=== PATIENT | female | born 1995 | race American Indian/Alaskan Native ===

== ENCOUNTER 2017-01-28 16:41 | Emergency (ER) | payer SELFPAY ==
[2017-01-28 17:08] VITALS: BP 157/95
[2017-01-28 18:27] LABS: Bilirubin,Urine NEG (Negative); Blood,Urine NEG (Negative); Ketones,Urine NEG (Negative); Leukocyte Esterase,Urine MOD (Negative); Mucus,Urine 1+ /HPF; Nitrite,Urine NEG (Negative)
[2017-01-28 19:10] LABS: Basophils % (Auto) 1.1 % (0.0-1.8); Eosinophils % (Auto) 1.7 % (0.0-4.3); Hematocrit 37.7 % (30.3-42.9); Hemoglobin 13.2 gm/dl (10.1-14.3); Mean Corpuscular HGB Conc 35 % (30-34); Mean Corpuscular Hemoglobin 30 pg (28-32); Mean Corpuscular Volume 87 fl (79-97); Platelet Count 178 K/mm3 (140-440); Red Blood Count 4.33 M/mm3 (3.65-5.03); Red Cell Distribution Width 13.4 % (13.2-15.2); White Blood Count 5.3 K/mm3 (4.5-11.0)
--- NOTE | 2017-01-28 19:22 | Emergency Department Report ---
<BETO RENNER - Last Filed: 01/28/17 19:33> ED Abdominal Pain HPI - General Chief Complaint: Urogenital-Female Stated Complaint: ABD PAIN Time Seen by Provider: 01/28/17 18:23 Source: patient Mode of arrival: Ambulatory Limitations: No Limitations - History of Present Illness Initial Comments: 21-year-old female past medical history right-sided ovarian cyst presents with complaint of crampy lower abdominal pain since yesterday. Denies fever chills nausea or vomiting. Denies any diarrhea. Denies any vaginal bleeding or vaginal discharge at this time. Last menstrual period 01/20/17. Patient states that this pain is consistent with her previous history of ovarian cyst pain MD Complaint: abdominal pain Onset/Timin -: days(s) Location: RLQ, suprapubic Radiation: RLQ, suprapubic Severity: moderate Severity scale (0 -10): 7 Quality: sharp Consistency: constant Improves With: nothing Worsens With: nothing - Related Data Previous Rx's Medication Instructions Recorded Last Taken Type Ferrous Sulfate [Feosol 325 MG tab] 325 mg PO BID #60 tablet 04/12/15 Unknown Rx HYDROcodone/APAP 5-325 [[place] 1 each PO Q6HR PRN #10 tablet 04/12/15 Unknown Rx 5-325 mg TAB] Sulfamethoxazole/Trimethoprim 1 each PO BID #6 tablet 01/28/17 Unknown Rx [Bactrim DS TAB] metroNIDAZOLE [Flagyl] 500 mg PO Q12HR #14 tab 01/28/17 Unknown Rx Allergies Allergy/AdvReac Type Severity Reaction Status Date / Time No Known Allergies Allergy Verified 03/02/16 17:09 ED Review of Systems ROS: Stated complaint: ABD PAIN Other details as noted in HPI Constitutional: denies: chills, fever Eyes: denies: eye pain, eye discharge, vision change ENT: denies: ear pain, throat pain Respiratory: denies: cough, shortness of breath, wheezing Cardiovascular: denies: chest pain, palpitations Endocrine: no symptoms reported Gastrointestinal: denies: abdominal pain, nausea, diarrhea Genitourinary: denies: urgency, dysuria, discharge Musculoskeletal: denies: back pain, joint swelling, arthralgia Skin: denies: rash, lesions Neurological: denies: headache, weakness, paresthesias Psychiatric: denies: anxiety, depression Hematological/Lymphatic: denies: easy bleeding, easy bruising ED Past Medical Hx - Past Medical History Hx Hypertension: No Hx Heart Attack/AMI: No Hx Congestive Heart Failure: No Hx Diabetes: No Hx Deep Vein Thrombosis: No Hx Liver Disease: No Hx Renal Disease: No Hx Sickle Cell Disease: No Hx Seizures: No Hx Asthma: No Hx COPD: No Hx HIV: No - Surgical History Hx Pacemaker: No Hx Internal Defibrillator: No Additional Surgical History: D&C - Social History Smoking Status: Never Smoker Substance Use Type: None - Medications Home Medications: Home Medications Medication Instructions Recorded Confirmed Last Taken Type Ferrous Sulfate [Feosol 325 MG tab] 325 mg PO BID #60 tablet 04/12/15 03/16/16 Unknown Rx HYDROcodone/APAP 5-325 [[place] 1 each PO Q6HR PRN #10 tablet 04/12/15 03/16/16 Unknown Rx 5-325 mg TAB] Sulfamethoxazole/Trimethoprim 1 each PO BID #6 tablet 01/28/17 Unknown Rx [Bactrim DS TAB] metroNIDAZOLE [Flagyl] 500 mg PO Q12HR #14 tab 01/28/17 Unknown Rx ED Physical Exam - General Limitations: No Limitations General appearance: alert, in no apparent distress - Head Head exam: Present: atraumatic, normocephalic - Eye Eye exam: Present: normal appearance, PERRL, EOMI - ENT ENT exam: Present: mucous membranes moist - Neck Neck exam: Present: normal inspection - Respiratory Respiratory exam: Present: normal lung sounds bilaterally. Absent: respiratory distress - Cardiovascular Cardiovascular Exam: Present: regular rate, normal rhythm. Absent: systolic murmur, diastolic murmur, rubs, gallop - GI/Abdominal GI/Abdominal exam: Present: soft, normal bowel sounds - External exam: Present: normal external exam Speculum exam: Present: normal speculum exam Bi-manual exam: Present: normal bi-manual exam, adnexal tenderness (minimal right sided adnexal tenderness) - Extremities Exam Extremities exam: Present: normal inspection - Back Exam Back exam: Present: normal inspection - Neurological Exam Neurological exam: Present: alert, oriented X3, CN II-XII intact, normal gait - Psychiatric Psychiatric exam: Present: normal affect, normal mood - Skin Skin exam: Present: warm, dry, intact, normal color. Absent: rash ED Course Vital Signs 01/28/17 17:05 Temperature 98.9 F Pulse Rate 71 Respiratory 18 Rate Blood Pressure 157/95 O2 Sat by Pulse 100 Oximetry ED Medical Decision Making - Lab Data Result diagrams: 01/28/17 18:55 01/28/17 18:55 - Medical Decision Making A/P: Suprapubic pain/lower abdominal pain adnexal pain 1-pending pelvic ultrasound 2-UA unremarkable, labs unremarkable, WBC shows no leukocytosis on CBC 3-what prep unremarkable 4- Critical care attestation.: If time is entered above; I have spent that time in minutes in the direct care of this critically ill patient, excluding procedure time. ED Disposition Clinical Impression: BV (bacterial vaginosis) UTI (urinary tract infection) Qualifiers: Urinary tract infection type: acute cystitis Hematuria presence: without hematuria Qualified Code(s): N30.00 - Acute cystitis without hematuria Disposition: TO HOME OR SELFCARE Condition: Stable Instructions: Bacterial Vaginosis (ED), Urinary Tract Infection in Women (ED) Prescriptions: metroNIDAZOLE [Flagyl] 500 mg PO Q12HR #14 tab Sulfamethoxazole/Trimethoprim [Bactrim DS TAB] 1 each PO BID #6 tablet Referrals: PRIMARY CARE, [Primary Care Provider] - 3-5 Days Forms: STI Treatment and Prevention, Work/School Release Form(ED) <GUSTAVO MURO - Last Filed: 01/28/17 21:30> ED Medical Decision Making - Lab Data Result diagrams: 01/28/17 18:55 01/28/17 18:55 Labs 01/28/17 01/28/17 01/28/17 17:36 18:55 18:55 WBC 5.3 RBC 4.33 Hgb 13.2 Hct 37.7 MCV 87 MCH 30 MCHC 35 H RDW 13.4 Plt Count 178 Lymph % (Auto) 50.0 H [place] % (Auto) 7.2 Eos % (Auto) 1.7 Baso % (Auto) 1.1 Lymph # 2.6 [place] # 0.4 Eos # 0.1 Baso # 0.1 Seg Neutrophils % 40.0 Seg Neutrophils # 2.1 Sodium 143 Potassium 4.0 Chloride 103.2 Carbon Dioxide 29 Anion Gap 15 BUN 7 Creatinine 0.6 L Estimated GFR > 60 BUN/Creatinine Ratio 12 Glucose 104 H Calcium 9.1 HCG, Quant Urine Color Yellow Urine Turbidity Clear Urine pH 6.0 Ur Specific [place] 1.023 Urine Protein 30 mg/dl Urine Glucose (UA) Neg Urine Ketones Neg Urine Blood Neg Urine Nitrite Neg Urine Bilirubin Neg Urine Urobilinogen 4.0 Ur Leukocyte Esterase Mod Urine WBC (Auto) 12.0 H Urine RBC (Auto) 2.0 U Epithel Cells (Auto) 9.0 Urine Mucus 1+ Urine HCG, Qual Negative 01/28/17 18:55 WBC RBC Hgb Hct MCV MCH MCHC RDW Plt Count Lymph % (Auto) [place] % (Auto) Eos % (Auto) Baso % (Auto) Lymph # [place] # Eos # Baso # Seg Neutrophils % Seg Neutrophils # Sodium Potassium Chloride Carbon Dioxide Anion Gap BUN Creatinine Estimated GFR BUN/Creatinine Ratio Glucose Calcium HCG, Quant < 2 Urine Color Urine Turbidity Urine pH Ur Specific [place] Urine Protein Urine Glucose (UA) Urine Ketones Urine Blood Urine Nitrite Urine Bilirubin Urine Urobilinogen Ur Leukocyte Esterase Urine WBC (Auto) Urine RBC (Auto) U Epithel Cells (Auto) Urine Mucus Urine HCG, Qual - Radiology Data Radiology results: report reviewed U/S transvaginal normal pelvic ultrasound. bilateral ovaries appear normal. color duplex evaluation of the ovaries shows flow bilaterally. - Medical Decision Making 21 year old female presents to ED with pelvic pain. patient states pain radiates to right side of abdomen. patient has no tenderness present to RLQ during palpation on exam. all 4 quadrants of patient's abdomen are non tender to palpation. patient has WBC within normal limits and is afebrile. patient is stable, neurologically intact and in no acute distress. patient has no acute findings on U/S ordered by previous provider. patient has urine positive for UTI and wet prep positive for BV. patient has negative preg test during ED visit today. ED Disposition Is pt being admited?: No Does the pt Need Aspirin: No
[2017-01-28 19:25] LABS: Anion Gap 15 mmol/L; BUN/Creatinine Ratio 12; Blood Urea Nitrogen 7 mg/dL (7-17); Calcium 9.1 mg/dL (8.4-10.2); Carbon Dioxide 29 mmol/L (22-30); Chloride 103.2 mmol/L (98-107); Glucose 104 mg/dL (65-100); Sodium 143 mmol/L (137-145)
--- NOTE | 2017-01-28 20:07 | Ultrasound Report ---
FINAL REPORT EXAM: US TRANSVAGINAL HISTORY: right sided adnexal pain ? torsion TECHNIQUE: Real-time sonography was performed of the pelvis endovaginally. Images are submitted for interpretation. PRIORS: 03/25/2015 FINDINGS: The uterus appears normal measuring 8.4 x 5.0 x 5.4 cm. The endometrial stripe appears normal measuring 6 mm. The right ovary appears normal measuring 3.2 x 2.2 x 3.2 cm. There is a normal appearing follicle in the right ovary. The left ovary appears normal measuring 4.1 x 2.0 x 3.2 cm. Color duplex evaluation of the ovaries shows flow bilaterally. There is a small amount of free pelvic fluid likely physiologic in nature. IMPRESSION: Normal pelvic ultrasound.
--- NOTE | 2017-01-28 20:08 | Ultrasound Report ---
FINAL REPORT EXAM: US PELVIS DUPLEX DOPPLER COMP HISTORY: right sided adnexal pain ? torsion TECHNIQUE: Real-time sonography was performed of the pelvis transabdominally. Images are submitted for interpretation. PRIORS: 03/25/2015 FINDINGS: The uterus appears normal measuring 8.4 x 5.0 x 5.4 cm. The endometrial stripe appears normal measuring 6 mm. The right ovary appears normal measuring 3.2 x 2.2 x 3.2 cm. There is a normal appearing follicle in the right ovary. The left ovary appears normal measuring 4.1 x 2.0 x 3.2 cm. Color duplex evaluation of the ovaries shows flow bilaterally. There is a small amount of free pelvic fluid likely physiologic in nature. IMPRESSION: Normal pelvic ultrasound.
== END 2017-01-28 21:37 | disposition home or self-care (01) ==
LOC: ED 16:41
DX: N76.0 Acute vaginitis (principal); N39.0 Urinary tract infection, site not specified
CPT/HCPCS: 36415; 76830; 80048; 81001; 81025; 84702; 85025; 87210; 93975; 99284

== ENCOUNTER 2017-07-04 16:57 | Emergency (ER) | payer SELFPAY ==
--- NOTE | 2017-07-04 19:56 | Emergency Department Report ---
ED Chest Pain HPI - General Chief Complaint: Chest Pain Stated Complaint: CP Time Seen by Provider: 07/04/17 19:29 Source: patient Mode of arrival: Ambulatory Limitations: No Limitations - History of Present Illness Initial Comments: 22yo female with no significant pmhx comes in compalining of chest and abdominal pain for 1 month. pt states that it hurts to breathe at times. Pt currently denies n/v/sob. She did report in triage that she was having nausea and vomiting and shortness of breath but denies with me and to attending physician. Patient denies any medical problems she has a history of D&C 2. She currently doesn't have a primary care physician due to lack of insurance. She reports that her pain is 7 out of 10 and achy. Abdominal pain is located to the lower abdomen. Denies any diarrhea. Reports vaginal discharge. Denies any fever, cough. Patient has similar incident of chest pain in the past. She said it was gas. Denies any vaginal bleeding or back pain. Denies any urinary burning frequency or urgency. Denies any history of blood clots or swelling to extremities. Denies taking control. Denies any family history of blood clot. She was seen in screened by attending physician Complaint: chest pain, other (abdominal pain and vaginal discharge) Onset/Timin -: month(s) Onset: during rest Pain Location: substernal Pain Radiation: abdomen Severity: severe Severity scale (0 -10): 7 Quality: aching Consistency: intermittent Improves With: nothing Worsens With: inspiration Context: other (unknown) re: denies: nausea, vomting, diaphoresis, dyspnea, sense of impending doom Other Symptoms: denies: cough, fever, syncope, rash, acid taste in mouth, leg swelling, palpitations, burping Treatments Prior to Arrival: none Aspirin use within the Past 7 Days: (0) No - Related Data On Oral Contraceptives: No (last menstrual period was in 04/2017. She told triage nurse t105/12/2015) Previous Rx's Medication Instructions Recorded Last Taken Type Ferrous Sulfate [Feosol 325 MG tab] 325 mg PO BID #60 tablet 04/12/15 Unknown Rx HYDROcodone/APAP 5-325 [[place] 1 each PO Q6HR PRN #10 tablet 04/12/15 Unknown Rx 5-325 mg TAB] Sulfamethoxazole/Trimethoprim 1 each PO BID #6 tablet 01/28/17 Unknown Rx [Bactrim DS TAB] Vit No.130/Iron/Folic 1 each PO QDAY 30 Days #30 tablet 07/04/17 Unknown Rx [ Tablet] metroNIDAZOLE [Flagyl TAB] 500 mg PO Q12HR 7 Days #14 tab 07/04/17 Unknown Rx Allergies Allergy/AdvReac Type Severity Reaction Status Date / Time No Known Allergies Allergy Verified 03/02/16 17:09 Heart Score - HEART Score History: Slightly suspicious EKG: Normal Age: < 45 Risk factors: 1-2 risk factors (positive ) Troponin: < normal limit HEART Score: 1 - Critical Actions Critical Actions: 0-3 pts:0.9-1.7%risk of adverse cardiac event.Candidate for discharge ED Review of Systems ROS: Stated complaint: CP Other details as noted in HPI Comment: All other systems reviewed and negative Constitutional: no symptoms reported ENT: denies: ear pain, throat pain, congestion Respiratory: no symptoms reported Cardiovascular: chest pain. denies: palpitations, dyspnea on exertion, orthopnea, edema, syncope, paroxysmal nocturnal dyspnea Gastrointestinal: abdominal pain. denies: nausea, vomiting, diarrhea, constipation, hematemesis, melena, hematochezia Genitourinary: discharge, abnormal menses. denies: urgency, dysuria, frequency , hematuria, dyspareunia Musculoskeletal: denies: back pain, joint swelling, arthralgia, myalgia Skin: denies: rash Neurological: denies: headache, weakness, numbness, paresthesias, abnormal gait , vertigo ED Past Medical Hx - Past Medical History Previous Medical History?: No Hx Hypertension: No Hx Heart Attack/AMI: No Hx Congestive Heart Failure: No Hx Diabetes: No Hx Deep Vein Thrombosis: No Hx Liver Disease: No Hx Renal Disease: No Hx Sickle Cell Disease: No Hx Seizures: No Hx Asthma: No Hx COPD: No Hx HIV: No - Surgical History Past Surgical History?: Yes Hx Pacemaker: No Hx Internal Defibrillator: No Additional Surgical History: D&C x 2 - Family History Family history: hypertension - Social History Smoking Status: Never Smoker Substance Use Type: None - Medications Home Medications: Home Medications Medication Instructions Recorded Confirmed Last Taken Type Ferrous Sulfate [Feosol 325 MG tab] 325 mg PO BID #60 tablet 04/12/15 03/16/16 Unknown Rx HYDROcodone/APAP 5-325 [[place] 1 each PO Q6HR PRN #10 tablet 04/12/15 03/16/16 Unknown Rx 5-325 mg TAB] Sulfamethoxazole/Trimethoprim 1 each PO BID #6 tablet 01/28/17 Unknown Rx [Bactrim DS TAB] Vit No.130/Iron/Folic 1 each PO QDAY 30 Days #30 tablet 07/04/17 Unknown Rx [ Tablet] metroNIDAZOLE [Flagyl TAB] 500 mg PO Q12HR 7 Days #14 tab 07/04/17 Unknown Rx ED Physical Exam - General Limitations: No Limitations General appearance: alert, in no apparent distress - Head Head exam: Present: atraumatic, normocephalic, normal inspection - Eye Eye exam: Present: normal appearance, PERRL, EOMI Pupils: Present: normal accommodation - ENT ENT exam: Present: normal exam, normal orophraynx, mucous membranes moist - Neck Neck exam: Present: normal inspection, full ROM. Absent: tenderness, lymphadenopathy, thyromegaly - Respiratory Respiratory exam: Present: normal lung sounds bilaterally, chest wall tenderness (positive reproduction of pain to mid chest wall). Absent: respiratory distress, wheezes, rales, rhonchi, stridor, accessory muscle use, decreased breath sounds, prolonged expiratory - Cardiovascular Cardiovascular Exam: Present: regular rate, normal rhythm, normal heart sounds. Absent: systolic murmur, diastolic murmur - GI/Abdominal GI/Abdominal exam: Present: soft, normal bowel sounds. Absent: distended, tenderness, guarding, rebound, rigid, organomegaly, mass, bruit, pulsatile mass , hernia - External exam: Present: normal external exam Speculum exam: Present: vaginal discharge, cervical discharge. Absent: normal speculum exam, erythema, vaginal bleeding, foreign body, tissue, laceration Bi-manual exam: Present: normal bi-manual exam - Expanded Exam Expanded External exam: Present: normal Amniotic fluid: Present: none Speculum exam: Present: cervical OS closed - Extremities Exam Extremities exam: Present: normal inspection, full ROM, normal capillary refill , other (no clubbing, cyanosis or edema. +2 pulses all extremities. No neurovascular compromise. Patient with +5 strength in all extremities. No laceration, contusion or erythema to extremities). Absent: tenderness, pedal edema, joint swelling, calf tenderness - Back Exam Back exam: Present: normal inspection, full ROM, other (ambulates without difficulties). Absent: tenderness, CVA tenderness (R), CVA tenderness (L), muscle spasm, paraspinal tenderness, vertebral tenderness, rash noted - Neurological Exam Neurological exam: Present: alert, oriented X3, normal gait - Psychiatric Psychiatric exam: Present: normal affect, normal mood - Skin Skin exam: Present: warm, dry, intact, normal color. Absent: rash ED Course Vital Signs 07/04/17 07/04/17 17:02 22:18 Temperature 98.7 F Pulse Rate 93 H 72 Respiratory 16 18 Rate Blood Pressure 121/74 Blood Pressure 112/77 [Left] O2 Sat by Pulse 100 100 Oximetry - Reevaluation(s) Reevaluation #1: 07/04/17 23:44 Patient stable throughout ED course. It was a tolerate oral liquids in emergency room. AMBROSE score - Ambrose Score Age > 65: (0) No Aspirin use within the Past 7 Days: (0) No 3 or more CAD Risk Factors: (0) No 2 or more Angina events in past 24 hrs: (0) No Known CAD with more than 50% Stenosis: (0) No Elevated Cardiac Markers: (0) No ST Deviation Greater than 0.5mm: (0) No AMBROSE Score: 0 ED Medical Decision Making - Lab Data Result diagrams: 07/04/17 19:52 07/04/17 19:52 Lab Results 07/04/17 07/04/17 07/04/17 Range/Units 19:52 19:52 19:52 WBC 7.0 (4.5-11.0) K/mm3 RBC 4.65 (3.65-5.03) M/mm3 Hgb 13.9 (10.1-14.3) gm/dl Hct 40.8 (30.3-42.9) % MCV 88 (79-97) fl MCH 30 (28-32) pg MCHC 34 (30-34) % RDW 13.4 (13.2-15.2) % Plt Count 252 (140-440) K/mm3 Lymph % (Auto) 44.5 H (13.4-35.0) % Bartholomew % (Auto) 7.0 (0.0-7.3) % Eos % (Auto) 2.6 (0.0-4.3) % Baso % (Auto) 0.5 (0.0-1.8) % Lymph # 3.1 (1.2-5.4) K/mm3 Bartholomew # 0.5 (0.0-0.8) K/mm3 Eos # 0.2 (0.0-0.4) K/mm3 Baso # 0.0 (0.0-0.1) K/mm3 Seg Neutrophils % 45.4 (40.0-70.0) % Seg Neutrophils # 3.2 (1.8-7.7) K/mm3 D-Dimer 171.43 (0-234) ng/mlDDU Sodium (137-145) mmol/L Potassium (3.6-5.0) mmol/L Chloride (98-107) mmol/L Carbon Dioxide (22-30) mmol/L Anion Gap mmol/L BUN (7-17) mg/dL Creatinine (0.7-1.2) mg/dL Estimated GFR ml/min BUN/Creatinine Ratio % Glucose (65-100) mg/dL Calcium (8.4-10.2) mg/dL Total Bilirubin (0.1-1.2) mg/dL AST (5-40) units/L ALT (7-56) units/L Alkaline Phosphatase (35-129) units/L Troponin T < 0.010 (0.00-0.029) ng/mL Total Protein (6.3-8.2) g/dL Albumin (3.9-5) g/dL Albumin/Globulin Ratio % Lipase 44 (13-60) units/L HCG, Qual (Negative) HCG, Quant (0-4) mIU/mL Urine Color (Yellow) Urine Turbidity (Clear) Urine pH (5.0-7.0) Ur Specific [place] (1.003-1.030) Urine Protein (Negative) mg/dL Urine Glucose (UA) (Negative) mg/dL Urine Ketones (Negative) mg/dL Urine Blood (Negative) Urine Nitrite (Negative) Urine Bilirubin (Negative) Urine Urobilinogen (<2.0) mg/dL Ur Leukocyte Esterase (Negative) Urine WBC (Auto) (0.0-6.0) /HPF Urine RBC (Auto) (0.0-6.0) /HPF U Epithel Cells (Auto) (0-13.0) /HPF Urine Mucus /HPF 07/04/17 07/04/17 07/04/17 Range/Units 19:52 19:52 19:52 WBC (4.5-11.0) K/mm3 RBC (3.65-5.03) M/mm3 Hgb (10.1-14.3) gm/dl Hct (30.3-42.9) % MCV (79-97) fl MCH (28-32) pg MCHC (30-34) % RDW (13.2-15.2) % Plt Count (140-440) K/mm3 Lymph % (Auto) (13.4-35.0) % Bartholomew % (Auto) (0.0-7.3) % Eos % (Auto) (0.0-4.3) % Baso % (Auto) (0.0-1.8) % Lymph # (1.2-5.4) K/mm3 Bartholomew # (0.0-0.8) K/mm3 Eos # (0.0-0.4) K/mm3 Baso # (0.0-0.1) K/mm3 Seg Neutrophils % (40.0-70.0) % Seg Neutrophils # (1.8-7.7) K/mm3 D-Dimer (0-234) ng/mlDDU Sodium 140 (137-145) mmol/L Potassium 4.5 (3.6-5.0) mmol/L Chloride 103.4 (98-107) mmol/L Carbon Dioxide 25 (22-30) mmol/L Anion Gap 16 mmol/L BUN 7 (7-17) mg/dL Creatinine 0.6 L (0.7-1.2) mg/dL Estimated GFR > 60 ml/min BUN/Creatinine Ratio 12 % Glucose 86 (65-100) mg/dL Calcium 9.2 (8.4-10.2) mg/dL Total Bilirubin 0.30 (0.1-1.2) mg/dL AST 20 (5-40) units/L ALT 10 (7-56) units/L Alkaline Phosphatase 55 (35-129) units/L Troponin T (0.00-0.029) ng/mL Total Protein 7.5 (6.3-8.2) g/dL Albumin 4.2 (3.9-5) g/dL Albumin/Globulin Ratio 1.3 % Lipase (13-60) units/L HCG, Qual Positive (Negative) HCG, Quant 6637 H (0-4) mIU/mL Urine Color (Yellow) Urine Turbidity (Clear) Urine pH (5.0-7.0) Ur Specific [place] (1.003-1.030) Urine Protein (Negative) mg/dL Urine Glucose (UA) (Negative) mg/dL Urine Ketones (Negative) mg/dL Urine Blood (Negative) Urine Nitrite (Negative) Urine Bilirubin (Negative) Urine Urobilinogen (<2.0) mg/dL Ur Leukocyte Esterase (Negative) Urine WBC (Auto) (0.0-6.0) /HPF Urine RBC (Auto) (0.0-6.0) /HPF U Epithel Cells (Auto) (0-13.0) /HPF Urine Mucus /HPF 07/04/17 Range/Units 20:17 WBC (4.5-11.0) K/mm3 RBC (3.65-5.03) M/mm3 Hgb (10.1-14.3) gm/dl Hct (30.3-42.9) % MCV (79-97) fl MCH (28-32) pg MCHC (30-34) % RDW (13.2-15.2) % Plt Count (140-440) K/mm3 Lymph % (Auto) (13.4-35.0) % Bartholomew % (Auto) (0.0-7.3) % Eos % (Auto) (0.0-4.3) % Baso % (Auto) (0.0-1.8) % Lymph # (1.2-5.4) K/mm3 Bartholomew # (0.0-0.8) K/mm3 Eos # (0.0-0.4) K/mm3 Baso # (0.0-0.1) K/mm3 Seg Neutrophils % (40.0-70.0) % Seg Neutrophils # (1.8-7.7) K/mm3 D-Dimer (0-234) ng/mlDDU Sodium (137-145) mmol/L Potassium (3.6-5.0) mmol/L Chloride (98-107) mmol/L Carbon Dioxide (22-30) mmol/L Anion Gap mmol/L BUN (7-17) mg/dL Creatinine (0.7-1.2) mg/dL Estimated GFR ml/min BUN/Creatinine Ratio % Glucose (65-100) mg/dL Calcium (8.4-10.2) mg/dL Total Bilirubin (0.1-1.2) mg/dL AST (5-40) units/L ALT (7-56) units/L Alkaline Phosphatase (35-129) units/L Troponin T (0.00-0.029) ng/mL Total Protein (6.3-8.2) g/dL Albumin (3.9-5) g/dL Albumin/Globulin Ratio % Lipase (13-60) units/L HCG, Qual (Negative) HCG, Quant (0-4) mIU/mL Urine Color Yellow (Yellow) Urine Turbidity Clear (Clear) Urine pH 7.0 (5.0-7.0) Ur Specific [place] 1.024 (1.003-1.030) Urine Protein <15 mg/dl (Negative) mg/dL Urine Glucose (UA) Neg (Negative) mg/dL Urine Ketones Neg (Negative) mg/dL Urine Blood Neg (Negative) Urine Nitrite Neg (Negative) Urine Bilirubin Neg (Negative) Urine Urobilinogen 4.0 (<2.0) mg/dL Ur Leukocyte Esterase Tr (Negative) Urine WBC (Auto) 2.0 (0.0-6.0) /HPF Urine RBC (Auto) 2.0 (0.0-6.0) /HPF U Epithel Cells (Auto) 3.0 (0-13.0) /HPF Urine Mucus Few /HPF Wet prep with greater than 20% himself and negative trichomoniasis and yeast. ATUL and chlamydia test distended - EKG Data -: EKG Interpreted by Me (attending physician) EKG shows normal: sinus rhythm (92 bpm) Rate: normal - EKG Data Interpretation: no acute changes, normal EKG - Radiology Data Radiology results: report reviewed Patient found to have positive tests and she hasn't had her period since April 2017. Transvaginal and pelvic ultrasound revealed patient with early IUP with gestational sac and yolk sac only. No embryonic pole or heart tones seen. Follow-up is advised. Minimal free fluid. Pelvic ultrasound also reports single intrauterine gestational sac noted approximately 5 weeks and 5 days. They recommended follow-up ultrasound in 1 week to confirm viability and suggests serial beta hCG level. - Medical Decision Making ED course: Patient complaining of chest and abdominal pain. Heart score is 1 due to positive . AMBROSE is 0. Based on perk rule patient did not need any further workup for pulmonary embolism. D-dimer normal values. Troponin negative. CBC and urinalysis is stable. Chemistries stable. Quantitative hCG positive and correlates with ultrasound. Ultrasound report shows patient with positive IUP at approximately 5 weeks and 5 days without any pole but positive yolk sac. Radiologist is recommended follow-up ultrasound for viability in one week and also serial hCG. I discussed labs and ultrasound report with patient and the need for her to follow-up with [facility] for repeat ultrasound in 1 week and also she needs to follow up with [facility] for monitoring and care. Discussed with her since she does not have any insurance that it would be better if she goes this outside Medical Center as they utilize a sliding scale fee to get her care started. I also discussed lab results and vaginal swab with her. I told her that they have primary care and [facility] at [facility]. I will refer her to our on-call [facility] which is my [facility] and also discussed outside medical center. I also discussed patient she needs to return to the hospital in 3 days to have repeat blood test to ensure that this is stable and increasing. Patient voiced understanding. She did not need any medication while in the emergency room. She is able to tolerate oral liquids without any problems. Patient and discharged home in stable condition with prescription for vitamin and Flagyl for bacterial vaginosis. Critical care attestation.: If time is entered above; I have spent that time in minutes in the direct care of this critically ill patient, excluding procedure time. ED Disposition Clinical Impression: Atypical chest pain, Threatened miscarriage, Vaginal discharge, Bacterial vaginosis Abdominal pain during Qualifiers: Trimester: first trimester Qualified Code(s): O26.891 - Other specified related conditions, first trimester; R10.9 - Unspecified abdominal pain Disposition: - TO HOME OR SELFCARE Is pt being admited?: No Does the pt Need Aspirin: No Condition: Stable Instructions: Chest Pain (ED), Bacterial Vaginosis (ED), Threatened Miscarriage (ED), Abdominal Pain in (ED) Additional Instructions: Please return to the hospital if you have increasing abdominal pain, vaginal bleeding . Please follow up at [facility] where he will be able to obtain care with [facility] and also primary care. Please call and schedule an appointment for follow-up visits. You can also called my [facility] and schedule an appointment. Radiology requested that you have a follow-up ultrasound in 1 week You will also need to return to the hospital in 3 days to have repeat blood test done. Start taking vitamin Prescriptions: metroNIDAZOLE [Flagyl TAB] 500 mg PO Q12HR 7 Days #14 tab Vit No.130/Iron/Folic [ Tablet] 1 each PO QDAY 30 Days #30 tablet Referrals: [facility] [Provider Group] - 07/07/17 [facility] [Outside] - 07/07/17 (Patient given paperwork with address and phone number and clinic hours for [facility] [Primary Care Provider] - 07/07/17 return to, emergency room [Other] - 07/07/17 (you will need repeat blood blood test in 3 days) Forms: Work/School Release Form(ED)
--- NOTE | 2017-07-04 19:56 | Emergency Department Report ---
Blank Doc - Documentation Documentation: 22yo f with no significant pmhx comes in compalining of chest and abdominal pain for 1 month. pt states that it hurts to breathe at times. Pt currently denies n/v/sob. PE: + reproducible chest pain on palpation plan: labwork, xray, CT
[2017-07-04 20:08] LABS: Basophils % (Auto) 0.5 % (0.0-1.8); Eosinophils # (Auto) 0.2 K/mm3 (0.0-0.4); Eosinophils % (Auto) 2.6 % (0.0-4.3); Hematocrit 40.8 % (30.3-42.9); Hemoglobin 13.9 gm/dl (10.1-14.3); Lymphocytes # (Auto) 3.1 K/mm3 (1.2-5.4); Lymphocytes % (Auto) 44.5 % (13.4-35.0); Mean Corpuscular HGB Conc 34 % (30-34); Mean Corpuscular Hemoglobin 30 pg (28-32); Mean Corpuscular Volume 88 fl (79-97); Monocytes # (Auto) 0.5 K/mm3 (0.0-0.8); Platelet Count 252 K/mm3 (140-440); Red Blood Count 4.65 M/mm3 (3.65-5.03); Red Cell Distribution Width 13.4 % (13.2-15.2)
[2017-07-04 20:15] LABS: Lipase 44 units/L (13-60)
[2017-07-04 20:19] LABS: Alanine Aminotransferase 10 units/L (7-56); Albumin 4.2 g/dL (3.9-5); BUN/Creatinine Ratio 12; Blood Urea Nitrogen 7 mg/dL (7-17); Calcium 9.2 mg/dL (8.4-10.2); Hemolysis Index 4
[2017-07-04 20:25] LABS: Bilirubin,Urine NEG (Negative); Blood,Urine NEG (Negative); Color,Urine Yellow (Yellow); Mucus,Urine FEW /HPF; Protein,Urine <15 mg/dL mg/dL (Negative)
[2017-07-04 22:18] VITALS: BP 112/77
--- NOTE | 2017-07-04 22:19 | Ultrasound Report ---
FINAL REPORT PROCEDURE: US OB TRANSVAGINAL TECHNIQUE: Real-time transvaginal sonography of the uterus, placenta, amniotic fluid, adnexa, and fetus was performed with image documentation. Measurements were obtained to determine age/size. M-mode Doppler was used to document heartbeat. CPT 11440 HISTORY: cp, abd pain. vag discharge, preg COMPARISON: No prior studies are available for comparison. FINDINGS: CRL: No embryo seen at this time Yolk Sac: Normal. Embryonic Cardiac Activity: No heart tones seen at this time Gestational Sac: 10 millimeters consistent with 5 week 5 day age Right Ovary: Normal. 2.5 x 2.2 centimeters Left Ovary: Normal. 4.2 x 2.5 centimeters Estimated delivery date: 03/01/2018 Comment: Minimal free fluid. IMPRESSION: Early IUP with gestational sac and yolk sac only. No embryonic pole or heart tones seen. Followup is advised. Minimal free fluid.
--- NOTE | 2017-07-04 22:25 | Ultrasound Report ---
FINAL REPORT EXAM: US OB < = 14 WEEKS FETUS HISTORY: cp, abd pain. vag discharge, preg . Vaginal spotting. LMP 04/17/2017 with estimated age 11 weeks 1 day and EDC 01/22/2018 TECHNIQUE: Ultrasound of the pelvis using transabdominal and transvaginal imaging PRIORS: Pelvic ultrasound 01/28/2017 FINDINGS: Uterus: Uterus is enlarged in size and normal and homogeneous in echogenicity without focal fibroid formation. The uterus measures 9.8 x 6.1 x 7.1 cm in size. There is a single early intrauterine gestation noted. Intrauterine gestation: There is a single intrauterine gestation identified with only a yolk sac seen. No evidence for a pole is seen. Gestational sac diameter measurement of 1.04 cm corresponds to estimated age 5 weeks 5 days with EDC 03/01/2018. Ovaries: Both ovaries appear normal in size and echogenicity with normal blood flow bilaterally. The right ovary measures 2.5 x 1.6 x 2.2 cm and the left ovary measures 4.2 x 2.5 x 2.3 cm in size. Other: There is no evidence for solid adnexal mass is seen. There is small amount of free fluid in the cul-de-sac. IMPRESSION: Single intrauterine gestational sac noted with an approximate age of 5 weeks 5 days. This sac contains only a yolk sac at this time. No pole is present. Follow-up ultrasound 1 week is suggested to confirm viability. Alternatively, correlation with serial beta HCG levels could also be obtained.
== END 2017-07-05 00:27 | disposition home or self-care (01) ==
LOC: ED 16:57
DX: O20.0 Threatened abortion (principal); O23.591 Infection of other part of genital tract in pregnancy, first trimester; B96.89 Other specified bacterial agents as the cause of diseases classified elsewhere; O26.891 Other specified pregnancy related conditions, first trimester; R07.89 Other chest pain; Z3A.01 Less than 8 weeks gestation of pregnancy
CPT/HCPCS: 36415; 76801; 76817; 80053; 81001; 83690; 84484; 84702; 84703; 85025; 85379; 87086; 87210; 87591; 93005; 93010

== ENCOUNTER 2017-07-18 17:16 | Emergency (ER) | payer SELFPAY ==
[2017-07-18 17:33] VITALS: BP 109/70
[2017-07-18] MEDS ORDERED: TYLENOL PO ONE (18:09)
[2017-07-18 18:35] LABS: Bilirubin,Urine NEG (Negative); Blood,Urine NEG (Negative); Color,Urine Yellow (Yellow); Mucus,Urine 2+ /HPF; Protein,Urine <15 mg/dL mg/dL (Negative)
--- NOTE | 2017-07-18 20:52 | Ultrasound Report ---
FINAL REPORT PROCEDURE: US OB < = 14 WEEKS FETUS TECHNIQUE: Real-time transabdominal sonography of the uterus, placenta, amniotic fluid, adnexa, and fetus was performed with image documentation. Measurements were obtained to determine age/size. M-mode Doppler was used to document heartbeat. CPT 76366 HISTORY: aprox 7 week with low abd/llq pain COMPARISON: No prior studies are available for comparison. FINDINGS: CRL: 11.6 mm, which corresponds to a gestational age of: 7 weeks, 2 days. Yolk Sac: Normal. Embryonic Cardiac Activity: 141 beats per minute Gestational Sac: Normal. Amniotic fluid: Normal. Cervix: Normal. Right Ovary: 2.7 x 1.9 x 2.6 centimeters with normal echotexture and Doppler signal Left Ovary: 4.9 x 2.4 x 2.7 centimeters with normal echotexture and Doppler signal. Estimated delivery date: 03/04/2018 Uterus and adnexa: Normal. IMPRESSION: Single live intrauterine gestation at approximately 7 weeks and 2 days. EDC by US 03/04/2018
--- NOTE | 2017-07-18 20:53 | Ultrasound Report ---
FINAL REPORT PROCEDURE: US OB TRANSVAGINAL TECHNIQUE: Real-time transvaginal sonography of the uterus, placenta, amniotic fluid, adnexa, and fetus was performed with image documentation. Measurements were obtained to determine age/size. M-mode Doppler was used to document heartbeat. CPT 60851 HISTORY: aprox 7 week with low abd/llq pain COMPARISON: No prior studies are available for comparison. FINDINGS: 1. Single living intrauterine gestation at approximately 2. EDC by US . CRL: 11.6 mm, which corresponds to a gestational age of: 7 weeks, 2 days. Yolk Sac: Normal. Embryonic Cardiac Activity: 141 beats per minute Gestational Sac: Normal. Amniotic fluid: Normal. Cervix: Normal. Right Ovary: 2.7 x 1.9 x 2.6 centimeters with normal echotexture and Doppler signal Left Ovary: 4.9 x 2.4 x 2.7 centimeters with normal echotexture and Doppler signal. Estimated delivery date: 03/04/2018 Uterus and adnexa: Normal. IMPRESSION: Single live intrauterine gestation at approximately 7 weeks and 2 days. EDC by US 03/04/2018
--- NOTE | 2017-07-18 22:22 | Emergency Department Report ---
ED Abdominal Pain HPI - General Chief Complaint: Abdominal Pain Stated Complaint: ABD PAIN Time Seen by Provider: 07/18/17 18:06 Source: patient Mode of arrival: Ambulatory Limitations: No Limitations - History of Present Illness Initial Comments: Patient is a 22-year-old Female who is approximately 7 weeks by dates who is having some sharp lower abdominal pain. Patient states pain present for approximately 2 days. Patient states some suprapubic region. Patient states there is no dysuria or urinary frequency or vaginal discharge or vaginal bleeding at this time. Patient states that she has had some nausea but no vomiting currently. Patient also denies any fever. Severity scale (0 -10): 7 - Related Data Previous Rx's Medication Instructions Recorded Last Taken Type Ferrous Sulfate [Feosol 325 MG tab] 325 mg PO BID #60 tablet 04/12/15 Unknown Rx HYDROcodone/APAP 5-325 [Edwards 1 each PO Q6HR PRN #10 tablet 04/12/15 Unknown Rx 5-325 mg TAB] Sulfamethoxazole/Trimethoprim 1 each PO BID #6 tablet 01/28/17 Unknown Rx [Bactrim DS TAB] Vit No.130/Iron/Folic 1 each PO QDAY 30 Days #30 tablet 07/04/17 Unknown Rx [ Tablet] metroNIDAZOLE [Flagyl TAB] 500 mg PO Q12HR 7 Days #14 tab 07/04/17 Unknown Rx Nitrofurantoin Monohyd/M-Cryst 100 mg PO BID #14 capsule 07/18/17 Unknown Rx [Macrobid 100 mg Capsule] Allergies Allergy/AdvReac Type Severity Reaction Status Date / Time No Known Allergies Allergy Verified 03/02/16 17:09 ED Review of Systems ROS: Stated complaint: ABD PAIN Other details as noted in HPI Comment: All other systems reviewed and negative ED Past Medical Hx - Past Medical History Hx Hypertension: No Hx Heart Attack/AMI: No Hx Congestive Heart Failure: No Hx Diabetes: No Hx Deep Vein Thrombosis: No Hx Liver Disease: No Hx Renal Disease: No Hx Sickle Cell Disease: No Hx Seizures: No Hx Asthma: No Hx COPD: No Hx HIV: No - Surgical History Hx Pacemaker: No Hx Internal Defibrillator: No Additional Surgical History: D&C x 2 - Social History Smoking Status: Never Smoker Substance Use Type: None - Medications Home Medications: Home Medications Medication Instructions Recorded Confirmed Last Taken Type Ferrous Sulfate [Feosol 325 MG tab] 325 mg PO BID #60 tablet 04/12/15 03/16/16 Unknown Rx HYDROcodone/APAP 5-325 [Edwards 1 each PO Q6HR PRN #10 tablet 04/12/15 03/16/16 Unknown Rx 5-325 mg TAB] Sulfamethoxazole/Trimethoprim 1 each PO BID #6 tablet 01/28/17 Unknown Rx [Bactrim DS TAB] Vit No.130/Iron/Folic 1 each PO QDAY 30 Days #30 tablet 07/04/17 Unknown Rx [ Tablet] metroNIDAZOLE [Flagyl TAB] 500 mg PO Q12HR 7 Days #14 tab 07/04/17 Unknown Rx Nitrofurantoin Monohyd/M-Cryst 100 mg PO BID #14 capsule 07/18/17 Unknown Rx [Macrobid 100 mg Capsule] ED Physical Exam - General Limitations: No Limitations General appearance: alert, in no apparent distress - Head Head exam: Present: atraumatic, normocephalic - Eye Eye exam: Present: normal appearance - ENT ENT exam: Present: mucous membranes moist - Neck Neck exam: Present: normal inspection - Respiratory Respiratory exam: Present: normal lung sounds bilaterally. Absent: respiratory distress, wheezes, rales, rhonchi - Cardiovascular Cardiovascular Exam: Present: regular rate, normal rhythm. Absent: systolic murmur, diastolic murmur, rubs, gallop - GI/Abdominal GI/Abdominal exam: Present: soft, tenderness (suprapubic), normal bowel sounds - Extremities Exam Extremities exam: Present: normal inspection - Back Exam Back exam: Present: normal inspection - Neurological Exam Neurological exam: Present: alert, oriented X3 - Psychiatric Psychiatric exam: Present: normal affect, normal mood - Skin Skin exam: Present: warm, dry, intact, normal color. Absent: rash ED Course Vital Signs 07/18/17 17:29 Temperature 98.6 F Pulse Rate 87 Respiratory 16 Rate Blood Pressure 109/70 O2 Sat by Pulse 100 Oximetry ED Medical Decision Making - Lab Data Lab Results 07/18/17 07/18/17 Range/Units 18:11 18:17 HCG, Quant [id number] H (0-4) mIU/mL Urine Color Yellow (Yellow) Urine Turbidity Clear (Clear) Urine pH 6.0 (5.0-7.0) Ur Specific [place]well 1.026 (1.003-1.030) Urine Protein <15 mg/dl (Negative) mg/dL Urine Glucose (UA) Neg (Negative) mg/dL Urine Ketones Neg (Negative) mg/dL Urine Blood Neg (Negative) Urine Nitrite Neg (Negative) Urine Bilirubin Neg (Negative) Urine Urobilinogen 2.0 (<2.0) mg/dL Ur Leukocyte Esterase Lg (Negative) Urine WBC (Auto) 4.0 (0.0-6.0) /HPF Urine RBC (Auto) 4.0 (0.0-6.0) /HPF U Epithel Cells (Auto) 8.0 (0-13.0) /HPF Urine Mucus 2+ /HPF - Radiology Data Patient: PATRICK MCDOWELL MR#: [id number] : 1995 Acct:[id number] Age/Sex: 22 / F ADM Date: 07/18/17 Loc: ED Attending Dr: Ordering Physician: SELIN HOFFMANN MD Date of Service: 07/18/17 Procedure(s): US OB transvaginal Accession Number(s): [id number] cc: SELIN HOFFMANN MD FINAL REPORT PROCEDURE: US OB TRANSVAGINAL TECHNIQUE: Real-time transvaginal sonography of the uterus, placenta, amniotic fluid, adnexa, and fetus was performed with image documentation. Measurements were obtained to determine age/size. M-mode Doppler was used to document heartbeat. CPT 62128 HISTORY: aprox 7 week with low abd/llq pain COMPARISON: No prior studies are available for comparison. FINDINGS: 1. Single living intrauterine gestation at approximately 2. EDC by US . CRL: 11.6 mm, which corresponds to a gestational age of: 7 weeks, 2 days. Yolk Sac: Normal. Embryonic Cardiac Activity: 141 beats per minute Gestational Sac: Normal. Amniotic fluid: Normal. Cervix: Normal. Right Ovary: 2.7 x 1.9 x 2.6 centimeters with normal echotexture and Doppler signal Left Ovary: 4.9 x 2.4 x 2.7 centimeters with normal echotexture and Doppler signal. Estimated delivery date: 03/04/2018 Uterus and adnexa: Normal. IMPRESSION: Single live intrauterine gestation at approximately 7 weeks and 2 days. EDC by US 03/04/2018 - Medical Decision Making Patient's urinalysis shows that she does have a mild urinary tract infection. Ultrasounds within normal limits. Patient was started on Macrobid be discharged home. Critical care attestation.: If time is entered above; I have spent that time in minutes in the direct care of this critically ill patient, excluding procedure time. ED Disposition Clinical Impression: UTI (urinary tract infection) during Qualifiers: Trimester: first trimester Qualified Code(s): O23.41 - Unspecified infection of urinary tract in , first trimester Disposition: TO HOME OR SELFCARE Is pt being admited?: No Does the pt Need Aspirin: No Condition: Stable Instructions: Urinary Tract Infection in Women (ED) Additional Instructions: Please take Tylenol for pain Prescriptions: Nitrofurantoin Monohyd/M-Cryst [Macrobid 100 mg Capsule] 100 mg PO BID #14 capsule
== END 2017-07-18 22:31 | disposition home or self-care (01) ==
LOC: ED 17:16
DX: O23.41 Unspecified infection of urinary tract in pregnancy, first trimester (principal); Z3A.01 Less than 8 weeks gestation of pregnancy
CPT/HCPCS: 36415; 76801; 76817; 81001; 84702; 99284

== ENCOUNTER 2017-09-04 19:15 | Emergency (ER) | payer SELFPAY ==
[2017-09-04 19:38] VITALS: BP 118/73
[2017-09-04 20:24] LABS: Basophils % (Auto) 0.5 % (0.0-1.8); Eosinophils # (Auto) 0.2 K/mm3 (0.0-0.4); Eosinophils % (Auto) 2.5 % (0.0-4.3); Hematocrit 38.3 % (30.3-42.9); Hemoglobin 12.8 gm/dl (10.1-14.3); Lymphocytes # (Auto) 2.4 K/mm3 (1.2-5.4); Lymphocytes % (Auto) 32.4 % (13.4-35.0); Mean Corpuscular HGB Conc 33 % (30-34); Mean Corpuscular Hemoglobin 30 pg (28-32); Mean Corpuscular Volume 89 fl (79-97); Monocytes # (Auto) 0.5 K/mm3 (0.0-0.8); Monocytes % (Auto) 6.6 % (0.0-7.3); Platelet Count 222 K/mm3 (140-440); Red Cell Distribution Width 14.1 % (13.2-15.2)
[2017-09-04 21:11] LABS: Alanine Aminotransferase 7 units/L (7-56); Albumin 3.9 g/dL (3.9-5); BUN/Creatinine Ratio 14; Blood Urea Nitrogen 7 mg/dL (7-17); Calcium 9.3 mg/dL (8.4-10.2); Hemolysis Index 7
--- NOTE | 2017-09-04 21:41 | Emergency Department Report ---
ED HPI - General Chief complaint: Abdominal Pain Stated complaint: ABD PAIN Time Seen by Provider: 09/04/17 21:03 Source: patient Mode of arrival: Ambulatory Limitations: No Limitations - History of Present Illness Initial comments: This is a 25-year-old female nontoxic, well nourished in appearance, no acute signs of distress presents to the ED with c/o of bilateral pelvic cramping x1 day. Patient stated is 14 weeks . Patient denies any vaginal bleeding or radiation of pain. Patient denies any abdominal upper abdominal pain. Patient denies any nausea, vomiting, chest pain, shortness of breathe, fever, chills, headache, stiff neck, numbness, tingling. Patient denies any vaginal discharge. Patient denies any urinary symptoms. Patient denies any allergies. PMH includes HTN. Patient stated that while she was in the ED symptoms of pain has resolved. MD Complaint: abdominal pain -: days(s) (1) Location: pelvis Radiation: none Severity: mild Severity scale (0 -10): 3 Quality: cramping Consistency: intermittent, now resolved Improves with: none Worsens with: none Associated symptoms: denies other symptoms, abdominal pain. denies: nausea/ vomiting, vaginal bleeding, vaginal discharge, dysuria, headache, vision changes , malaise, dysparuenia, rash, seizure, shortness of breath, syncope, weakness :: Yes Number of weeks : 14 OB History - Current : no complications OB History - Previous Pregnancies: no complications Pre- care: none - Related Data Previous Rx's Medication Instructions Recorded Last Taken Type Ferrous Sulfate [Feosol 325 MG tab] 325 mg PO BID #60 tablet 04/12/15 Unknown Rx HYDROcodone/APAP 5-325 [[place] 1 each PO Q6HR PRN #10 tablet 04/12/15 Unknown Rx 5-325 mg TAB] Sulfamethoxazole/Trimethoprim 1 each PO BID #6 tablet 01/28/17 Unknown Rx [Bactrim DS TAB] Vit No.130/Iron/Folic 1 each PO QDAY 30 Days #30 tablet 07/04/17 Unknown Rx [ Tablet] metroNIDAZOLE [Flagyl TAB] 500 mg PO Q12HR 7 Days #14 tab 07/04/17 Unknown Rx Nitrofurantoin Monohyd/M-Cryst 100 mg PO BID #14 capsule 07/18/17 Unknown Rx [Macrobid 100 mg Capsule] Allergies Allergy/AdvReac Type Severity Reaction Status Date / Time No Known Allergies Allergy Verified 03/02/16 17:09 ED Review of Systems ROS: Stated complaint: ABD PAIN Other details as noted in HPI Constitutional: denies: chills, fever Eyes: denies: eye pain, eye discharge, vision change ENT: denies: ear pain, throat pain Respiratory: denies: cough, shortness of breath, wheezing Cardiovascular: denies: chest pain, palpitations Endocrine: no symptoms reported Gastrointestinal: abdominal pain. denies: nausea, diarrhea Genitourinary: denies: urgency, dysuria, discharge Musculoskeletal: denies: back pain, joint swelling, arthralgia Skin: denies: rash, lesions Neurological: denies: headache, weakness, paresthesias Psychiatric: denies: anxiety, depression Hematological/Lymphatic: denies: easy bleeding, easy bruising ED Past Medical Hx - Past Medical History Previous Medical History?: Yes Hx Hypertension: Yes Hx Heart Attack/AMI: No Hx Congestive Heart Failure: No Hx Diabetes: No Hx Deep Vein Thrombosis: No Hx Liver Disease: No Hx Renal Disease: No Hx Sickle Cell Disease: No Hx Seizures: No Hx Asthma: No Hx COPD: No Hx HIV: No - Surgical History Past Surgical History?: Yes Hx Pacemaker: No Hx Internal Defibrillator: No Additional Surgical History: D&C x 2 - Social History Smoking Status: Never Smoker Substance Use Type: None - Medications Home Medications: Home Medications Medication Instructions Recorded Confirmed Last Taken Type Ferrous Sulfate [Feosol 325 MG tab] 325 mg PO BID #60 tablet 04/12/15 03/16/16 Unknown Rx HYDROcodone/APAP 5-325 [[place] 1 each PO Q6HR PRN #10 tablet 04/12/15 03/16/16 Unknown Rx 5-325 mg TAB] Sulfamethoxazole/Trimethoprim 1 each PO BID #6 tablet 01/28/17 Unknown Rx [Bactrim DS TAB] Vit No.130/Iron/Folic 1 each PO QDAY 30 Days #30 tablet 07/04/17 Unknown Rx [ Tablet] metroNIDAZOLE [Flagyl TAB] 500 mg PO Q12HR 7 Days #14 tab 07/04/17 Unknown Rx Nitrofurantoin Monohyd/M-Cryst 100 mg PO BID #14 capsule 07/18/17 Unknown Rx [Macrobid 100 mg Capsule] ED Physical Exam - General Limitations: No Limitations General appearance: alert, in no apparent distress - Head Head exam: Present: atraumatic, normocephalic - Eye Eye exam: Present: normal appearance Pupils: Present: normal accommodation - ENT ENT exam: Present: normal exam, mucous membranes moist - Neck Neck exam: Present: normal inspection, full ROM. Absent: tenderness, meningismus, lymphadenopathy - Respiratory Respiratory exam: Present: normal lung sounds bilaterally. Absent: respiratory distress, wheezes, rales, rhonchi, stridor, chest wall tenderness, accessory muscle use, decreased breath sounds, prolonged expiratory - Cardiovascular Cardiovascular Exam: Present: regular rate, normal rhythm, normal heart sounds. Absent: irregular rhythm, systolic murmur, diastolic murmur, rubs, gallop - GI/Abdominal GI/Abdominal exam: Present: soft, normal bowel sounds. Absent: distended, tenderness, guarding, rebound, rigid, diminished bowel sounds - Rectal Rectal exam: Present: deferred - Extremities Exam Extremities exam: Present: normal inspection, full ROM, normal capillary refill. Absent: tenderness - Back Exam Back exam: Present: normal inspection, full ROM. Absent: tenderness, CVA tenderness (R), CVA tenderness (L), muscle spasm, paraspinal tenderness, vertebral tenderness, rash noted - Neurological Exam Neurological exam: Present: alert, oriented X3, normal gait - Psychiatric Psychiatric exam: Present: normal affect, normal mood - Skin Skin exam: Present: warm, dry, intact, normal color. Absent: rash ED Course Vital Signs 09/04/17 09/04/17 19:24 19:37 Temperature 98.6 F Pulse Rate 100 H Respiratory 18 Rate Blood Pressure 118/73 [Right] O2 Sat by Pulse 98 Oximetry - Reevaluation(s) Reevaluation #1: 09/04/17 21:46 Patient is speaking in full sentences with no signs of distress noted. ED Medical Decision Making - Lab Data Result diagrams: 09/04/17 19:53 09/04/17 19:53 - Medical Decision Making This is a 22-year-old female presents with cramping. Patient is stable and was examined by me. Normal abdominal exam. US OB obtained and dictated by the radiologist. Quantative serum test obtained. Patient notified of the US report with no questions noted by the patient. Labs within normal limits. Patient was referred to Follow-up with a [facility] in 3-5 days or if symptoms worsen and continue return to emergency room as soon as possible. At time of discharge, the patient does not seem toxic or ill in appearance. No acute signs of distress noted. Patient agrees to discharge treatment plan of care. No further questions noted by the patient. Critical care attestation.: If time is entered above; I have spent that time in minutes in the direct care of this critically ill patient, excluding procedure time. ED Disposition Clinical Impression: with abdominal cramping of lower quadrant, antepartum Disposition: - TO HOME OR SELFCARE Is pt being admited?: No Does the pt Need Aspirin: No Condition: Stable Instructions: Abdominal Pain (ED) Additional Instructions: Follow-up with a [facility] in 3-5 days or if symptoms worsen and continue return to emergency room as soon as possible. Referrals: PRIMARY [facility] [Primary Care Provider] - 3-5 Days SIMEON OWENS MD [Staff Physician] - 3-5 Days [facility] [Provider Group] - 3-5 Days [facility] [Outside] - 3-5 Days [facility] [Outside] - 3-5 Days Forms: Work/School Release Form(ED)
[2017-09-04 22:39] LABS: Bilirubin,Urine NEG (Negative); Blood,Urine NEG (Negative); Color,Urine Yellow (Yellow); Mucus,Urine 3+ /HPF; Protein,Urine <15 mg/dL mg/dL (Negative); Urobilinogen,Urine < 2.0 mg/dL (<2.0)
--- NOTE | 2017-09-08 14:18 | Ultrasound Report ---
FINAL REPORT EXAM: US OB > = 14 WEEKS FETUS HISTORY: ABD pain / TECHNIQUE: Obstetrical ultrasound transabdominal PRIORS: None. FINDINGS: Single live intrauterine gestation present cardiac activity is present with heart rate of 158 beats per minute Placenta is grade 0 and posterior Cervical length is 3.4 centimeters Following structures appear unremarkable, stomach, urinary bladder, diaphragm, three-vessel cord and cord insert. Four-chamber view of the heart, spine and kidneys were not well visualized biometric measurements were obtained Biparietal diameter 14 weeks 6 days Head circumference 14 weeks 6 days abdominal circumference 14 weeks 0 day Femur length 14 weeks 0 days Based on today's exam composite gestational age is 14 weeks 3 days. Based on prior exam estimated gestational age 14 weeks 1 day. This demonstrates adequate interval growth IMPRESSION: Single live intrauterine gestation demonstrating adequate interval growth
== END 2017-09-04 22:07 | disposition home or self-care (01) ==
LOC: ED 19:15
DX: O26.891 Other specified pregnancy related conditions, first trimester (principal); Z3A.14 14 weeks gestation of pregnancy; I10 Essential (primary) hypertension
CPT/HCPCS: 36415; 76805; 80053; 81001; 84702; 85025; 99284

== ENCOUNTER 2019-08-04 13:48 | Outpatient (CLI) | payer SELFPAY ==
[2019-08-04 15:56] LABS: Bilirubin,Urine NEG (Negative); Blood,Urine NEG (Negative); Color,Urine Yellow (Yellow); Mucus,Urine 3+ /HPF; Protein,Urine <15 mg/dL mg/dL (Negative); Urobilinogen,Urine < 2.0 mg/dL (<2.0)
--- NOTE | 2019-08-04 16:37 | Ultrasound Report ---
ULTRASOUND OBSTETRIC INDICATION: Evaluate gestational age. TECHNIQUE: Transabdominal. COMPARISON: OB ultrasound from 02/27/2018. FINDINGS: GESTATIONAL SAC: Well-defined oval shape and intrauterine in location. YOLK SAC: No significant abnormality. EMBRYO/FETUS: No significant abnormality. - Veblen-Rump Length = 7.82 cm = 13 weeks, 6 day(s). - Heart Rate = 149 beats per minute. ADNEXA: No significant abnormality. FREE FLUID: None. ADDITIONAL FINDINGS: None. IMPRESSION: 1. Single, living intrauterine with estimated sonographic age of 13 weeks, 6 day(s). Signer Name: Bryson Mendoza MD Signed: 08/04/2019 4:33 PM Workstation Name: [id number]
--- NOTE | 2019-08-04 17:03 | Event Note ---
Date: 08/04/19 (pt presents c/o being 20w and having pain) RN called to say she was unable to locate FHTs Pt had not had any PNC as of this time, and had come up with weeks of gestation by her LNMP. By exam she palpated 6-8 weeks. US ordered. US GA 13 weeks with +FHTs. Pt given list of local providers and encouraged to seek PNC. D/C home in good spirits.
== END 2019-08-04 16:40 | disposition home or self-care (01) ==
LOC: TRG 13:48 → APU 15:22 → TRG 16:40
PROVIDERS: ATTEND Obstetrics & Gynecology
DX: Z34.01 Encounter for supervision of normal first pregnancy, first trimester (principal); Z3A.13 13 weeks gestation of pregnancy
CPT/HCPCS: 76801; 81001; 87086

== ENCOUNTER 2019-09-16 07:41 | Emergency (ER) | payer SELFPAY ==
--- NOTE | 2019-09-16 08:11 | Emergency Department Report ---
ED ENT HPI - General Chief complaint: Abdominal Pain Stated complaint: TOOTH PAIN Time Seen by Provider: 09/16/19 08:03 Source: patient Mode of arrival: Ambulatory Limitations: No Limitations - History of Present Illness Initial comments: 24-year-old -Mongol[place] female presents to the emergency room complaining of a toothache and abdominal pain both started 2 days ago. Patient states that she is about 4 to 5 months . Patient reports that she is aware she has 2 large holes in her tooth on the left upper right and left lower right. Sulma billie reports she is taking Tylenol 1000 mg every 6 hours but no relief. Patient denies any fever chills no nausea no vomiting. MD complaint: tooth pain Onset/Timin -: days(s) Location: tooth # (14,19) Severity: severe Severity scale (0 -10): 8 Quality: stabbing, aching Consistency: constant Improves with: none Worsens with: none Context- Dental: history of dental caries Associated Symptoms: gum swelling, toothache. denies: fever, cough, pain with swallowing, sore throat, tinnitus - Related Data Home Medications Medication Instructions Recorded Confirmed Last Taken Vit-Fe Fumar-FA [ 1 tab PO QDAY 02/20/18 03/03/18 03/02/18 Vitamin] Previous Rx's Medication Instructions Recorded Last Taken Type Clindamycin [Clindamycin CAP] 300 mg PO Q8H 10 Days #30 cap 09/16/19 Unknown Rx Allergies Allergy/AdvReac Type Severity Reaction Status Date / Time No Known Allergies Allergy Verified 03/02/16 17:09 ED Dental HPI - General Chief complaint: Abdominal Pain Stated complaint: TOOTH PAIN Time Seen by Provider: 09/16/19 08:03 Source: patient Mode of arrival: Ambulatory Limitations: No Limitations - Related Data Home Medications Medication Instructions Recorded Confirmed Last Taken Vit-Fe Fumar-FA [ 1 tab PO QDAY 02/20/18 03/03/18 03/02/18 Vitamin] Previous Rx's Medication Instructions Recorded Last Taken Type Clindamycin [Clindamycin CAP] 300 mg PO Q8H 10 Days #30 cap 09/16/19 Unknown Rx Allergies Allergy/AdvReac Type Severity Reaction Status Date / Time No Known Allergies Allergy Verified 03/02/16 17:09 ED Review of Systems ROS: Stated complaint: TOOTH PAIN Other details as noted in HPI ED Past Medical Hx - Past Medical History Previous Medical History?: No Hx Hypertension: No Hx Congestive Heart Failure: No Hx Diabetes: No Hx Deep Vein Thrombosis: No Hx Liver Disease: No Hx Renal Disease: No Hx Sickle Cell Disease: No Hx Seizures: No Hx Asthma: No Hx COPD: No Hx HIV: No - Surgical History Additional Surgical History: D&C x 2 - Social History Smoking Status: Never Smoker Substance Use Type: None - Medications Home Medications: Home Medications Medication Instructions Recorded Confirmed Last Taken Type Vit-Fe Fumar-FA [ 1 tab PO QDAY 02/20/18 03/03/18 03/02/18 History Vitamin] Clindamycin [Clindamycin CAP] 300 mg PO Q8H 10 Days #30 cap 09/16/19 Unknown Rx ED Physical Exam - General Limitations: No Limitations General appearance: alert, in no apparent distress - Head Head exam: Present: atraumatic, normocephalic - Eye Eye exam: Present: normal appearance - ENT ENT exam: Present: mucous membranes moist, other (Left-sided facial swelling and tenderness) - Expanded ENT Exam Expanded Teeth exam: Present: dental caries, dental tenderness # (14,19), gingival enlargement - Back Exam Back exam: Present: normal inspection - Neurological Exam Neurological exam: Present: alert, oriented X3 - Psychiatric Psychiatric exam: Present: normal affect, normal mood - Skin Skin exam: Present: warm, dry, intact, normal color. Absent: rash ED Course Vital Signs 09/16/19 07:42 Temperature 98 F Pulse Rate 110 H Respiratory 18 Rate Blood Pressure 141/97 O2 Sat by Pulse 100 Oximetry ED Medical Decision Making - Medical Decision Making 24-year-old -Mongolian female presents to the emergency room complaining of a toothache and abdominal pain both started 2 days ago. Patient states that she is about 4 to 5 months . Patient reports that she is aware she has 2 large holes in her tooth on the left upper right and left lower right. Patient reports she is taking Tylenol 1000 mg every 6 hours but no relief. Patient denies any fever chills no nausea no vomiting. Discussed with patient I will treat her for her tooth abscess but she must follow-up at labor and delivery for her pelvic and abdominal pain since she is close to 5 months . Last menstrual period was in April 2019. Critical care attestation.: If time is entered above; I have spent that time in minutes in the direct care of this critically ill patient, excluding procedure time. ED Disposition Clinical Impression: Dental abscess Disposition: DC-01 TO HOME OR SELFCARE Is pt being admited?: No Does the pt Need Aspirin: No Condition: Stable Instructions: Abdominal Pain (ED), Dental Abscess (ED) Additional Instructions: Please complete antibiotics as prescribed. Take Tylenol only for pain management. And please follow-up at labor and delivery. Prescriptions: Clindamycin [Clindamycin CAP] 300 mg PO Q8H 10 Days #30 cap
[2019-09-16 08:41] VITALS: BP 140/82
== END 2019-09-16 08:39 | disposition home or self-care (01) ==
LOC: ED 07:41
DX: K04.7 Periapical abscess without sinus (principal); Z79.899 Other long term (current) drug therapy; Z98.890 Other specified postprocedural states
CPT/HCPCS: 99282

== ENCOUNTER 2019-09-16 09:07 | Outpatient (CLI) | payer SELFPAY ==
[2019-09-16] MEDS ORDERED: LACTATED RINGERS 1,000 ML ONE (10:09)
[2019-09-16 10:15] VITALS: BP 137/85
[2019-09-16] MEDS ORDERED: LACTATED RINGERS 500 ML IV ONE (10:28)
[2019-09-16 11:37] LABS: Bilirubin,Urine NEG (Negative); Blood,Urine NEG (Negative); Color,Urine Yellow (Yellow); Mucus,Urine FEW /HPF; Protein,Urine <15 mg/dL mg/dL (Negative); Urobilinogen,Urine < 2.0 mg/dL (<2.0)
--- NOTE | 2019-09-16 12:14 | Ultrasound Report ---
ULTRASOUND OBSTETRIC INDICATION / CLINICAL INFORMATION: abdominal pain. Clinical Gestational Age (GA): 20.0 weeks.days TECHNIQUE: Transabdominal. COMPARISON: None available. FINDINGS: There is a single intrauterine . Biparietal Diameter = 4.6 cm = 19.6 weeks.days Head Circumference = 17.6 cm = 20.0 weeks.days Abdominal Circumference = 14.9 cm = 20.1 weeks.days Femur Length = 3.3 cm = 20.1 weeks.days Average Ultrasound Age (AUA) = 20.0 weeks.days Heart Rate: 146 beats per minute. Estimated Weight in grams (if calculated): 335 Estimated Weight Growth Percentile (if calculated): 54 Position: cephalic. Cervix: closed. Length in cm (if measured): 3.2 Placenta: Posterior, grade 0 and free of the os. Amniotic Fluid Volume: normal Maternal Adnexa: No significant abnormality. IMPRESSION: 1. Single, living intrauterine with estimated sonographic age of 20.0 weeks.days 2. No significant sonographic abnormality. Signer Name: Claudio Johnson MD Signed: 09/16/2019 12:10 PM Workstation Name: [id number]
== END 2019-09-16 12:51 | disposition home or self-care (01) ==
LOC: APU 09:07 → TRG 09:07
PROVIDERS: ATTEND Obstetrics & Gynecology
DX: O26.892 Other specified pregnancy related conditions, second trimester (principal); R10.9 Unspecified abdominal pain; Z3A.20 20 weeks gestation of pregnancy
CPT/HCPCS: 76805; 81001; J7120

== ENCOUNTER 2019-12-21 17:44 | Outpatient (CLI) | payer MEDICAID ==
[2019-12-21 18:20] VITALS: BP 126/67
[2019-12-21] MEDS ORDERED: LACTATED RINGERS 500 ML IV ONE (18:39)
[2019-12-21] MEDS ORDERED: ACETAMINOPHEN 500 MG TAB PO ONE (18:41)
[2019-12-21 19:15] LABS: Bacteria,Urine 1+ /HPF (Negative); Bilirubin,Urine NEG (Negative); Blood,Urine NEG (Negative); Color,Urine Yellow (Yellow); Mucus,Urine FEW /HPF; Trichomonas,Urine FEW /HPF
== END 2019-12-21 20:45 | disposition home or self-care (01) ==
LOC: APU 17:44 → TRG 17:44
PROVIDERS: ATTEND Obstetrics & Gynecology
DX: O26.893 Other specified pregnancy related conditions, third trimester (principal); R10.9 Unspecified abdominal pain; Z3A.34 34 weeks gestation of pregnancy
CPT/HCPCS: 59025; 81001; 87086

== ENCOUNTER 2020-01-09 19:00 | Outpatient (CLI) | payer MEDICAID ==
[2020-01-09] MEDS ORDERED: LACTATED RINGERS 500 ML IV ONE (19:45)
[2020-01-09] MEDS ORDERED: LACTATED RINGERS 1,000 ML IV ONE (20:06)
[2020-01-09 20:20] LABS: Amphetamine Screen,Urine Negative; Benzodiazepines Screen,Urine Negative; Cannabinoid Screen,Urine Negative; Cocaine Screen,Urine Negative; Methadone Screen,Urine Negative; Opiate Screen,Urine Negative
[2020-01-09 20:34] LABS: Bacteria,Urine 1+ /HPF (Negative); Bilirubin,Urine NEG (Negative); Blood,Urine NEG (Negative); Color,Urine Straw (Yellow); Mucus,Urine FEW /HPF; Protein,Urine <15 mg/dL mg/dL (Negative); Urobilinogen,Urine < 2.0 mg/dL (<2.0)
--- NOTE | 2020-01-09 21:13 | Ultrasound Report ---
ULTRASOUND OBSTETRIC LIMITED INDICATION / CLINICAL INFORMATION: placenta integrity, s/p fall. Clinical Gestational Age (GA): 36.3 weeks.days COMPARISON: None available. FINDINGS: HEART RATE (beats per minute): 156 AMNIOTIC FLUID INDEX (cm) = not performed (normal = 7-24 cm) PRESENTATION: Cephalic. ADDITIONAL FINDINGS: Placenta posterior grade 2. No evidence for placental abruption. IMPRESSION: 1. No significant abnormality. Signer Name: Azam Gaviria MD Signed: 01/09/2020 9:09 PM Workstation Name: [id number]
--- NOTE | 2020-01-09 23:07 | Ultrasound Report ---
US OB BPP wo non-stress INDICATION / CLINICAL INFORMATION: BPP/YUNIOR. COMPARISON: None available. FINDINGS: Biophysical profile: breathing movement: 2 movement: 2 posture and tone: 2 Amniotic fluid volume (YUNIOR of 7.1 cm): 2 Total biophysical profile score: 8/8 Single, viable intrauterine . heart rate 140. IMPRESSION: 1. Single, viable intrauterine , with biophysical profile score of 8/8 Signer Name: Modesto Tracey MD Signed: 01/09/2020 11:02 PM Workstation Name: [id number]
[2020-01-10] MEDS ORDERED: TERBUTALINE 1 MG/1 ML INJ SUB-Q ONE (00:07)
[2020-01-10] MEDS ORDERED: LACTATED RINGERS 1,000 ML ONE (05:12)
--- NOTE | 2020-01-10 08:21 | Ultrasound Report ---
OB ULTRASOUND >= 14 WEEKS FETUS INDICATION: Recheck YUNIOR COMPARISON: 01/09/2020 FINDINGS: A single gestation intrauterine is present with cephalic presentation. The placenta is post erior, right lateral, grade 3 and free of the cervical os. heart tones measure 141 bpm. The ce rvix was obscured. Amniotic fluid volume is normal with a fluid index of 8.0. anatomical survey was not performed. Biparietal diameter is 9.0 cm which equals 36 weeks 3 days. Head circumference is 31.6 cm which equals 35 weeks 4 days. Abdominal circumference is 30.2 cm which equals 34 weeks 1 day. Femur length is 6.6 cm which equals 33 weeks 5 days. Overall estimated sonographic age is 35 weeks 0 days. EDC: 02/14/2020. Estimated weight: 2428 g +/- 359 g. 9th percentile. Cephalic index: 85.0 HC/AC ratio: 1.05 IMPRESSION: Viable single intrauterine as described. YUNIOR equal 8.0 cm Signer Name: Ant Parker Jr, MD Signed: 01/10/2020 8:16 AM Workstation Name: [id number]
[2020-01-10 11:59] VITALS: BP 124/70
== END 2020-01-10 12:02 | disposition home or self-care (01) ==
LOC: TRG 19:00 → APU 19:10 → TRG 01-10 12:02
PROVIDERS: ATTEND Obstetrics & Gynecology
DX: O62.9 Abnormality of forces of labor, unspecified (principal); Z3A.36 36 weeks gestation of pregnancy; W10.9XXA Fall (on) (from) unspecified stairs and steps, initial encounter; Y93.89 Activity, other specified; Y92.009 Unspecified place in unspecified non-institutional (private) residence as the place of occurrence of the external cause; Y99.8 Other external cause status
CPT/HCPCS: 59025; 76815; 76816; 76819; 80307; 81001; 96372; J3105; Q0177; 96360; 96361; J7120

== ENCOUNTER 2020-01-11 11:04 | Outpatient (CLI) | payer MEDICAID ==
[2020-01-11] MEDS ORDERED: metroNIDAZOLE 500 MG TAB PO ONE (11:32)
[2020-01-11] MEDS ORDERED: LACTATED RINGERS 1,000 ML IV SCH (12:00)
[2020-01-11 12:01] LABS: Bacteria,Urine 1+ /HPF (Negative); Bilirubin,Urine NEG (Negative); Blood,Urine NEG (Negative); Color,Urine Yellow (Yellow); Mucus,Urine FEW /HPF; Protein,Urine <15 mg/dL mg/dL (Negative); Urobilinogen,Urine < 2.0 mg/dL (<2.0)
[2020-01-11 12:18] LABS: Hematocrit 34.1 % (30.3-42.9); Hemoglobin 11.4 gm/dl (10.1-14.3); Mean Corpuscular HGB Conc 33 % (30-34); Mean Corpuscular Volume 83 fl (79-97); Platelet Count 169 K/mm3 (140-440); Red Blood Count 4.12 M/mm3 (3.65-5.03); Red Cell Distribution Width 15.6 % (13.2-15.2)
[2020-01-11 12:26] LABS: Alanine Aminotransferase 7 units/L (7-56)
[2020-01-11 13:13] LABS: Uric Acid 3.3 mg/dL (3.5-7.6)
[2020-01-11] MEDS ORDERED: LACTATED RINGERS 500 ML IV ONE (14:58)
[2020-01-11] MEDS ORDERED: TERBUTALINE 1 MG/1 ML INJ ONE (14:59)
[2020-01-11] MEDS ORDERED: TERBUTALINE 1 MG/1 ML INJ SUB-Q SCH (15:00)
[2020-01-11 15:36] VITALS: BP 133/74
== END 2020-01-11 16:05 | disposition home or self-care (01) ==
LOC: TRG 11:04 → APU 11:08 → TRG 16:05
PROVIDERS: ATTEND Obstetrics & Gynecology
DX: O62.9 Abnormality of forces of labor, unspecified (principal); O26.893 Other specified pregnancy related conditions, third trimester; R03.0 Elevated blood-pressure reading, without diagnosis of hypertension; Z3A.36 36 weeks gestation of pregnancy
CPT/HCPCS: 36415; 59025; 81001; 82565; 83615; 84450; 84460; 84550; 85027; 96360; 96361; 96372; J3105; J7120

== ENCOUNTER 2020-01-18 16:24 | Inpatient (IN) | payer MEDICAID ==
[2020-01-18] MEDS ORDERED: MINERAL OIL 30 ML ORAL LIQD PO PRN (20:26)
[2020-01-18] MEDS ORDERED: TERBUTALINE 1 MG/1 ML INJ SUB-Q PRN (20:26)
[2020-01-18] MEDS ORDERED: LIDOCAINE (2%) 20 MG/1 ML VIAL 20 ML MDV INFILTRATI ONE (20:26)
[2020-01-18] MEDS ORDERED: BUTORPHANOL 2 MG/1 ML INJ IV PRN ×2 (20:26)
[2020-01-18] MEDS ORDERED: ePHEDrine SULFATE 50 MG/1 ML INJ IV PRN (20:26)
[2020-01-18] MEDS ORDERED: OXYTOCIN DRIP 30 UNITS/500 ML BAG IV SCH ×2 (21:00)
[2020-01-18] MEDS: LACTATED RINGERS 1,000 ML IV SCH (21:48)
[2020-01-19 00:08] LABS: Hematocrit 29.9 % (30.3-42.9); Hemoglobin 9.6 gm/dl (10.1-14.3); Mean Corpuscular HGB Conc 32 % (30-34); Mean Corpuscular Volume 82 fl (79-97); Platelet Count 179 K/mm3 (140-440); Red Blood Count 3.63 M/mm3 (3.65-5.03); Red Cell Distribution Width 16.5 % (13.2-15.2)
[2020-01-19] MEDS: LACTATED RINGERS 1,000 ML IV SCH (05:28)
--- NOTE | 2020-01-19 10:00 | History and Physical Report ---
History of Present Illness Date of examination: 01/19/20 Date of admission: 01/18/20 20:26 Chief complaint: labor pains History of present illness: Late entry to care at 32 5/7 weeks. course complicated by positive Trichomonas (neg test of cure), Anemia (PO FeSO4), Vitamin D deficiency (Vit D supplementation), and HSV II (taking Valtrex suppression). 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 History: herpes, trichomonas Family/Genetic History: diabetes, hypertension Social history: single - Obstetrical History Expected Date of Delivery: 02/03/20 Actual Gestation: 37 Week(s) 6 Day(s) : 7 Para: 4 Hx # Term Pregnancies: 2 Number of Pregnancies: 2 Spontaneous Abortions: 2 Number of Living Children: 4 #1 Infant Gender: Female year: 2,011 Birthweight: 3.799 kg Method of Delivery: Vaginal Gestational age at delivery: 37 Complications: none #2 Gender: Male year: 2,013 Birthweight: 1.814 kg Method of Delivery: Vaginal Gestational age at delivery: 36 Complications: other (induced for preeclampsia) #3 Infant Gender: Female year: 2,016 Birthweight: 2.495 kg Method of Delivery: Vaginal Gestational age at delivery: 35 Complications: other ( delivery) #4 Gender: Male year: 2,018 Medications and Allergies Allergies Allergy/AdvReac Type Severity Reaction Status Date / Time No Known Allergies Allergy Verified 03/02/16 17:09 Home Medications Medication Instructions Recorded Confirmed Last Taken Type Vit-Fe Fumar-FA [ 1 tab PO QDAY 02/20/18 01/18/20 01/18/20 History Vitamin] Ferrous Sulfate 325 mg PO DAILY 01/09/20 01/18/20 01/16/20 History Active Meds: Active Medications Butorphanol Tartrate (Stadol) 1 mg IV Q2H PRN PRN Reason: Pain, Moderate(4-6) LABOR PAIN Butorphanol Tartrate (Stadol) 2 mg IV Q2H PRN PRN Reason: Pain , Severe (7-10) Ephedrine Sulfate (Ephedrine Sulfate) 10 mg IV Q2M PRN PRN Reason: Hypotension Oxytocin/Sodium Chloride (Pitocin/Ns 30 Unit/500ml) 30 units in 500 mls @ 2 mls/hr IV TITR EYAD; Protocol Lactated Ringer's (Lactated Ringers) 1,000 mls @ 125 mls/hr IV DIRECT EYAD Last Admin: 01/19/20 05:28 Dose: 125 mls/hr Documented by: Oxytocin/Sodium Chloride (Pitocin/Ns 30 Unit/500ml) 30 units in 500 mls @ 40 mls/hr IV TITR EYAD; Protocol Mineral Oil (Mineral Oil) 30 ml PO QHS PRN PRN Reason: Constipation Terbutaline Sulfate (Brethine) 0.25 mg SUB-Q ONCE PRN PRN Reason: Hyperstimulation/Hypertonicity Review of Systems All systems: negative - Vital Signs Vital signs: Vital Signs Pulse Pulse Ox 96 H 100 01/18/20 17:00 01/18/20 17:00 Temp Pulse Resp BP Pulse Ox 98.7 F 104 H 20 133/68 99 01/19/20 08:16 01/19/20 09:54 01/18/20 21:30 01/19/20 09:42 01/19/20 09:54 - Physical Exam Cardiovascular: Regular rate Lungs: Positive: Normal air movement Genitourinary (Female): Positive: normal external genitalia Vulva: both: normal Vagina: Positive: normal moisture Uterus: Positive: enlarged Anus/Rectum: Positive: normal perianal skin Extremities: Positive: normal - Obstetrical FHR: category 1 Uterine Contraction Monitor Mode: External Cervical Dilatation: 5 Cervical Effacement Percentage: 60 station: -2 Uterine Contraction Pattern: Irregular Uterine Tone Measurement Phase: Resting Uterine Contraction Intensity: Mild Results Result Diagrams: 01/18/20 23:26 Abnormal lab results 01/18/20 Range/Units 23:26 RBC 3.63 L (3.65-5.03) M/mm3 Hgb 9.6 L (10.1-14.3) gm/dl Hct 29.9 L (30.3-42.9) % MCH 26 L (28-32) pg RDW 16.5 H (13.2-15.2) % All other labs normal. Assessment and Plan A: IUP at 37 5/7 weeks Category I tracing Active Labor GBS Negative P: Admit to L&D per routine orders Pitocin Augmentation
[2020-01-19] MEDS ORDERED: fentaNYL-BUPIV 2 MCG/ML-0.125% 200 MCG/100 ML BAG EPIDURAL ONE (12:41)
[2020-01-19] MEDS ORDERED: NALOXONE 2 MG/2 ML INJ IV PRN (12:56)
[2020-01-19] MEDS ORDERED: ePHEDrine SULFATE 50 MG/1 ML INJ IV PRN (12:56)
--- NOTE | 2020-01-19 12:57 | Progress Note ---
Assessment and Plan A: IUP at 37 5/7 weeks Category I tracing Active Labor GBS Negative P: AROM Continue Pitocin Augmentation Prepare for Epidural Anesthesia Subjective - Subjective Date of service: 01/19/20 Interval history: Late entry to care at 32 5/7 weeks. course complicated by positive Trichomonas (neg test of cure), Anemia (PO FeSO4), Vitamin D deficiency (Vit D supplementation), and HSV II (taking Valtrex suppression). Patient reports: movement normal, contractions Objective - Vital Signs Vital Signs: Vital Signs - 12hr 01/19/20 01/19/20 01/19/20 01:00 01:01 01:06 Temperature Pulse Rate 89 85 106 H Blood Pressure O2 Sat by Pulse 84 98 99 Oximetry 01/19/20 01/19/20 01/19/20 01:11 01:16 01:21 Temperature Pulse Rate 101 H 91 H 105 H Blood Pressure O2 Sat by Pulse 99 99 100 Oximetry 01/19/20 01/19/20 01/19/20 01:26 01:31 01:36 Temperature Pulse Rate 95 H 92 H 87 Blood Pressure O2 Sat by Pulse 99 99 99 Oximetry 01/19/20 01/19/20 01/19/20 01:41 01:46 01:51 Temperature Pulse Rate 84 84 90 Blood Pressure O2 Sat by Pulse 99 99 99 Oximetry 01/19/20 01/19/20 01/19/20 01:52 01:56 02:01 Temperature Pulse Rate 87 90 88 Blood Pressure 113/61 O2 Sat by Pulse 99 99 Oximetry 01/19/20 01/19/20 01/19/20 02:06 02:11 02:16 Temperature Pulse Rate 83 87 95 H Blood Pressure O2 Sat by Pulse 100 99 99 Oximetry 01/19/20 01/19/20 01/19/20 02:21 02:26 02:31 Temperature Pulse Rate 88 87 90 Blood Pressure O2 Sat by Pulse 99 99 99 Oximetry 01/19/20 01/19/20 01/19/20 02:36 02:41 02:46 Temperature Pulse Rate 84 92 H 80 Blood Pressure O2 Sat by Pulse 99 99 99 Oximetry 01/19/20 01/19/20 01/19/20 02:51 02:56 03:01 Temperature Pulse Rate 87 109 H 93 H Blood Pressure 115/61 O2 Sat by Pulse 99 99 100 Oximetry 01/19/20 01/19/20 01/19/20 03:06 03:11 03:16 Temperature Pulse Rate 76 79 82 Blood Pressure O2 Sat by Pulse 100 99 99 Oximetry 01/19/20 01/19/20 01/19/20 03:21 03:26 03:31 Temperature Pulse Rate 76 81 73 Blood Pressure O2 Sat by Pulse 99 99 100 Oximetry 01/19/20 01/19/20 01/19/20 03:36 03:41 03:46 Temperature Pulse Rate 80 80 80 Blood Pressure O2 Sat by Pulse 99 99 99 Oximetry 01/19/20 01/19/20 01/19/20 03:51 03:53 03:56 Temperature Pulse Rate 77 80 79 Blood Pressure 117/56 O2 Sat by Pulse 100 100 Oximetry 01/19/20 01/19/20 01/19/20 04:01 04:06 04:11 Temperature Pulse Rate 80 85 89 Blood Pressure O2 Sat by Pulse 100 100 100 Oximetry 01/19/20 01/19/20 01/19/20 04:16 04:21 04:26 Temperature Pulse Rate 77 76 82 Blood Pressure O2 Sat by Pulse 100 99 99 Oximetry 01/19/20 01/19/20 01/19/20 04:31 04:40 04:45 Temperature Pulse Rate 74 86 88 Blood Pressure O2 Sat by Pulse 99 100 100 Oximetry 01/19/20 01/19/20 01/19/20 04:50 04:52 04:55 Temperature Pulse Rate 83 81 88 Blood Pressure 115/56 O2 Sat by Pulse 99 99 Oximetry 01/19/20 01/19/20 01/19/20 05:00 05:05 05:10 Temperature Pulse Rate 79 80 78 Blood Pressure O2 Sat by Pulse 99 100 99 Oximetry 01/19/20 01/19/20 01/19/20 05:15 05:20 05:25 Temperature Pulse Rate 81 83 79 Blood Pressure O2 Sat by Pulse 100 100 100 Oximetry 01/19/20 01/19/20 01/19/20 05:30 05:35 05:40 Temperature Pulse Rate 81 86 76 Blood Pressure O2 Sat by Pulse 99 99 99 Oximetry 01/19/20 01/19/20 01/19/20 05:45 05:50 05:53 Temperature Pulse Rate 74 89 75 Blood Pressure 131/71 O2 Sat by Pulse 99 99 Oximetry 01/19/20 01/19/20 01/19/20 05:55 06:00 06:05 Temperature Pulse Rate 85 82 84 Blood Pressure O2 Sat by Pulse 100 99 99 Oximetry 01/19/20 01/19/20 01/19/20 06:10 06:15 06:20 Temperature Pulse Rate 80 79 86 Blood Pressure O2 Sat by Pulse 100 99 100 Oximetry 01/19/20 01/19/20 01/19/20 06:25 06:30 06:35 Temperature Pulse Rate 82 90 96 H Blood Pressure O2 Sat by Pulse 99 99 100 Oximetry 01/19/20 01/19/20 01/19/20 06:40 06:45 06:50 Temperature Pulse Rate 71 87 94 H Blood Pressure O2 Sat by Pulse 99 99 99 Oximetry 01/19/20 01/19/20 01/19/20 06:51 06:55 07:00 Temperature Pulse Rate 90 83 88 Blood Pressure 121/60 O2 Sat by Pulse 99 99 Oximetry 01/19/20 01/19/20 01/19/20 07:05 07:10 07:15 Temperature Pulse Rate 86 80 79 Blood Pressure O2 Sat by Pulse 99 100 99 Oximetry 01/19/20 01/19/20 01/19/20 07:20 07:25 07:30 Temperature Pulse Rate 85 95 H 79 Blood Pressure O2 Sat by Pulse 99 99 98 Oximetry 01/19/20 01/19/20 01/19/20 07:35 07:40 07:45 Temperature Pulse Rate 85 108 H 108 H Blood Pressure O2 Sat by Pulse 99 100 99 Oximetry 01/19/20 01/19/20 01/19/20 07:50 07:51 07:55 Temperature Pulse Rate 88 93 H 83 Blood Pressure 117/71 O2 Sat by Pulse 100 100 Oximetry 01/19/20 01/19/20 01/19/20 08:00 08:05 08:10 Temperature Pulse Rate 89 89 85 Blood Pressure O2 Sat by Pulse 99 99 100 Oximetry 01/19/20 01/19/20 01/19/20 08:15 08:16 08:20 Temperature 98.7 F Pulse Rate 92 H 89 Blood Pressure O2 Sat by Pulse 100 100 Oximetry 01/19/20 01/19/20 01/19/20 08:25 08:30 08:35 Temperature Pulse Rate 89 96 H 94 H Blood Pressure O2 Sat by Pulse 99 98 100 Oximetry 01/19/20 01/19/20 01/19/20 08:40 08:43 08:45 Temperature Pulse Rate 80 77 80 Blood Pressure 118/66 O2 Sat by Pulse 99 100 Oximetry 01/19/20 01/19/20 01/19/20 08:49 08:54 08:56 Temperature Pulse Rate 164 H 69 Blood Pressure O2 Sat by Pulse 88 83 L 77 L Oximetry 01/19/20 01/19/20 01/19/20 09:00 09:06 09:21 Temperature Pulse Rate Blood Pressure O2 Sat by Pulse 74 L 83 L 85 Oximetry 01/19/20 01/19/20 01/19/20 09:24 09:29 09:34 Temperature Pulse Rate 82 92 H 98 H Blood Pressure O2 Sat by Pulse 100 98 98 Oximetry 01/19/20 01/19/20 01/19/20 09:39 09:42 09:44 Temperature Pulse Rate 88 82 84 Blood Pressure 133/68 O2 Sat by Pulse 98 100 Oximetry 01/19/20 01/19/20 01/19/20 09:49 09:54 09:59 Temperature Pulse Rate 86 104 H 96 H Blood Pressure O2 Sat by Pulse 99 99 99 Oximetry 01/19/20 01/19/20 01/19/20 10:04 10:09 10:13 Temperature Pulse Rate 84 83 76 Blood Pressure 133/79 O2 Sat by Pulse 99 99 Oximetry 01/19/20 01/19/20 01/19/20 10:14 10:19 10:24 Temperature Pulse Rate 86 74 72 Blood Pressure O2 Sat by Pulse 99 99 99 Oximetry 01/19/20 01/19/20 01/19/20 10:29 10:34 10:39 Temperature Pulse Rate 73 72 73 Blood Pressure O2 Sat by Pulse 99 99 100 Oximetry 01/19/20 01/19/20 01/19/20 10:43 10:44 10:49 Temperature Pulse Rate 72 77 80 Blood Pressure 115/55 O2 Sat by Pulse 99 99 Oximetry 01/19/20 01/19/20 01/19/20 10:54 10:59 11:04 Temperature Pulse Rate 78 86 104 H Blood Pressure O2 Sat by Pulse 99 100 100 Oximetry 01/19/20 01/19/20 01/19/20 11:09 11:13 11:14 Temperature Pulse Rate 88 81 82 Blood Pressure 115/57 O2 Sat by Pulse 99 99 Oximetry 01/19/20 01/19/20 01/19/20 11:19 11:24 11:29 Temperature Pulse Rate 83 85 81 Blood Pressure O2 Sat by Pulse 98 99 99 Oximetry 01/19/20 01/19/20 01/19/20 11:34 11:39 11:43 Temperature Pulse Rate 81 85 93 H Blood Pressure 119/65 O2 Sat by Pulse 99 99 Oximetry 01/19/20 01/19/20 01/19/20 11:44 11:49 11:54 Temperature Pulse Rate 96 H 85 79 Blood Pressure O2 Sat by Pulse 99 99 99 Oximetry 01/19/20 01/19/20 01/19/20 11:59 12:04 12:09 Temperature Pulse Rate 81 86 83 Blood Pressure O2 Sat by Pulse 100 100 100 Oximetry 01/19/20 01/19/20 01/19/20 12:12 12:14 12:19 Temperature Pulse Rate 82 85 86 Blood Pressure 122/67 O2 Sat by Pulse 99 99 Oximetry 01/19/20 01/19/20 01/19/20 12:24 12:29 12:34 Temperature Pulse Rate 87 83 86 Blood Pressure O2 Sat by Pulse 99 99 100 Oximetry 01/19/20 01/19/20 01/19/20 12:39 12:44 12:49 Temperature 98.1 F Pulse Rate 92 H 90 80 Blood Pressure 131/66 O2 Sat by Pulse 100 99 100 Oximetry - Exam Breasts: normal Cardiovascular: Regular rate Lungs: Clear to auscultation Abdomen: Present: normal appearance, soft Uterus: Present: normal, firm, fundal height above umbilicus FHR: category 1 Uterine Contraction Monitor Mode: External Cervical Dilatation: 5 (Large amount of clear fluid upon AROM at 1250) Cervical Effacement Percentage: 70 station: -2 Uterine Contraction Pattern: Regular Uterine Tone Measurement Phase: Resting Uterine Contraction Intensity: Moderate Extremities: normal - Labs Labs: Abnormal Labs 01/18/20 23:26 RBC 3.63 L Hgb 9.6 L Hct 29.9 L MCH 26 L RDW 16.5 H Laboratory Results - last 24 hr 01/18/20 01/18/20 01/18/20 22:30 23:26 23:26 WBC 9.4 RBC 3.63 L Hgb 9.6 L Hct 29.9 L MCV 82 MCH 26 L MCHC 32 RDW 16.5 H Plt Count 179 Syphilis IgG Antibody Nonreactive Blood Type B POSITIVE Antibody Screen Negative
[2020-01-19] MEDS ORDERED: fentaNYL-BUPIV 2 MCG/ML-0.125% 200 MCG/100 ML BAG EPIDURAL SCH (13:00)
--- NOTE | 2020-01-19 13:07 | Anesthesia Consultation ---
Anesthesia Consult and Med Hx Date of service: 01/19/20 - Airway Anesthetic Teeth Evaluation: Good ROM Head & Neck: Adequate Mental/Hyoid Distance: Adequate Mallampati Class: Class II Intubation Access Assessment: Probably Good - Pulmonary Exam CTA: Yes - Cardiac Exam Cardiac Exam: RRR - Pre-Operative Health Status ASA Pre-Surgery Classification: ASA2 Proposed Anesthetic Plan: Epidural - Pulmonary Hx Smoking: No Hx Asthma: No Hx Respiratory Symptoms: No SOB: No COPD: No Hx Pneumonia: No Hx Sleep Apnea: No - Cardiovascular System Hx Hypertension: Yes (PIH 2012) Hx Coronary Artery Disease: No Hx Heart Attack/AMI: No Hx Angina: No Hx Percutaneous Transluminal Coronary Angioplasty (PTCA): No Hx Cardia Arrhythmia: No Hx Pacemaker: No Hx Internal Defibrillator: No Hx Valvular Heart Disease: No Hx Heart Murmur: No Hx Peripheral Vascular Disease: No - Central Nervous System Hx Neuromuscular Disorder: No Hx Seizures: No CVA: No Hx Back Pain: No Hx Psychiatric Problems: No - Gastrointestinal Hx Ulcer: No Hx Gastroesophageal Reflux Disease: No - Endocrine Hx Renal Disease: No Hx End Stage Renal Disease: No Hx Cirrhosis: No Hx Liver Disease: No Hx Insulin Dependent Diabetes: No Hx Non-Insulin Dependent Diabetes: No Hx Thyroid Disease: No Hx Hypothyroidism: No Hx Hyperthyroidism: No - Hematic Hx Anemia: Yes Hx Sickle Cell Disease: No - Other Systems Hx Alcohol Use: No Hx Substance Use: No Hx Cancer: No Hx Obesity: Yes
--- NOTE | 2020-01-19 13:07 | Progress Note ---
Labor Epidural - Labor Epidural Start Time: 13:35 Stop Time: 13:49 Performed by:: MORIAH BAILEY Procedure: Patient is requesting a laboring epidural for laboring pain. Patient IDed, H&P reviewed, all questions and concerns were answered, and consent was signed. Timeout was performed at bedside. Patient in sitting position. Sterile prep and drape was performed. [3] ml of 1% lidocaine skin wheal at L[3]- L [4]. 18- gauge Touhy epidural needle was advanced to loss of resistance with air technique at 6cm. Negative CSF negative blood. Epidural catheter advanced to [14] centimeters. [NEGATIVE] Aspiration [NEGATIVE] test dose. Sterile dressing applied. Patient tolerated procedure. Samantha Rice, SRNA
[2020-01-19] MEDS ORDERED: DEXMEDETOMIDINE 200 MCG/2 ML VIAL IV ONE (13:30)
--- NOTE | 2020-01-19 16:11 | Procedure Note ---
OB Delivery Note - Delivery Date of Delivery: 01/19/20 Surgeon: JOSÉ MON Estimated blood loss: 200cc - Vaginal Delivery presentation: vertex Delivery position: OA Intrapartum events: none Delivery induction: oxytocin Delivery augmentation: rupture of membranes Delivery monitor: external FHT, external uterine Route of delivery: Delivery placenta: spontaneous Delivery cord: 3 umbilical vessels Episiotomy: none Delivery laceration: none Anesthesia: epidural Delivery comments: of a live 5'13 male infant with Apgars of 8 and 9 over an intact perineum under epidural anesthesia at 1546. Infant placed on maternal abdomen. Delayed cord clamping. Spontaneous delivery of a complete and intact placenta with Marks side presenting at 1550. Cord double clamped and cut by father of baby. Fundus is firm and midline, located 4 below the U. Lochia is scant. - A at 1 minute: 8 at 5 minutes: 9 Infant Gender: Male
[2020-01-19] MEDS ORDERED: HYDROcodone/ACETAMINOPHEN 5-325 MG TAB PO PRN (16:25)
[2020-01-19] MEDS ORDERED: LANOLIN/ZINC/DIMETHICONE (LANSINOH) 7 GM TP PRN (16:25)
[2020-01-19] MEDS ORDERED: WITCH HAZEL/ GLYCERIN PAD TP PRN (16:25)
[2020-01-19] MEDS ORDERED: diphenhydrAMINE 25 MG CAP PO PRN (16:25)
[2020-01-19] MEDS ORDERED: FERROUS SULFATE 325 MG TAB PO SCH (22:00)
[2020-01-19] MEDS: IBUPROFEN 600 MG TAB PO SCH (23:11)
[2020-01-20] MEDS: IBUPROFEN 600 MG TAB PO SCH (05:24)
--- NOTE | 2020-01-20 05:52 | Post Anesthesia Evaluation ---
- Post Anesthesia Evaluation Patient Participated: Yes Airway Patent: Yes Stable Respiratory Function: Yes Nausea/Vomiting: No Temp > 96.8F: Yes Pain Manageable: Yes Adequeate Hydration: Yes Anesthesia Complications: No Block Receding Appropriately: Yes Patient on Ventilator: No
[2020-01-20 06:12] LABS: Hematocrit 26.2 % (30.3-42.9); Hemoglobin 8.8 gm/dl (10.1-14.3)
--- NOTE | 2020-01-20 09:22 | Progress Note ---
Assessment and Plan PP Day 1 A: Anemia p: Continue monitoring Ferrous Sulfate tid D/C home tomm if stable - Patient Problems (1) Anemia Current Visit: Yes Status: Acute Subjective - Subjective Date of service: 01/20/20 Patient reports: appetite normal, voiding normally, pain well controlled, ambulating normally : doing well, nursing well Objective - Vital Signs Latest vital signs: Vital Signs Temp Pulse Resp BP Pulse Ox 01/20/20 05:41 98.2 F 77 20 124/73 99 01/20/20 05:24 20 01/20/20 00:02 98.1 F 75 20 117/69 98 01/19/20 23:11 20 01/19/20 20:04 97.5 F L 58 L 20 146/85 100 01/19/20 19:05 98.6 F 19 01/19/20 18:37 97.3 F L 129/66 01/19/20 17:53 54 L 137/82 01/19/20 17:08 56 L 123/76 01/19/20 16:23 63 122/87 01/19/20 16:19 73 83 L 01/19/20 16:15 81 L 01/19/20 16:11 55 L 82 L 01/19/20 16:10 82 L 01/19/20 16:05 85 01/19/20 16:04 191 H 88 01/19/20 16:00 57 L 87 01/19/20 15:59 65 88 01/19/20 15:54 36 L 88 01/19/20 15:50 65 132/72 01/19/20 15:49 72 92 01/19/20 15:44 83 99 01/19/20 15:39 70 100 01/19/20 15:38 58 L 118/67 01/19/20 15:34 63 99 01/19/20 15:29 64 98 01/19/20 15:24 69 98 01/19/20 15:19 59 L 99 01/19/20 15:14 60 100 01/19/20 15:09 63 99 01/19/20 15:06 59 L 140/71 01/19/20 15:04 63 100 01/19/20 14:59 62 100 01/19/20 14:54 69 99 01/19/20 14:49 77 100 01/19/20 14:44 87 99 01/19/20 14:39 74 127/76 99 01/19/20 14:34 70 133/77 98 01/19/20 14:29 67 122/66 99 01/19/20 14:25 71 113/71 01/19/20 14:24 70 99 01/19/20 14:20 68 124/64 01/19/20 14:19 68 124/66 99 01/19/20 14:15 67 122/67 01/19/20 14:14 74 99 01/19/20 14:11 64 120/65 01/19/20 14:09 68 121/75 99 01/19/20 14:04 71 125/60 99 01/19/20 13:59 72 128/86 99 01/19/20 13:54 71 132/71 100 01/19/20 13:50 80 148/72 01/19/20 13:49 81 132/87 100 01/19/20 13:44 81 144/80 100 01/19/20 13:40 75 147/93 01/19/20 13:39 82 147/94 100 01/19/20 13:34 81 100 01/19/20 13:29 81 100 01/19/20 13:24 81 100 01/19/20 13:19 73 99 01/19/20 13:14 73 118/71 100 01/19/20 13:09 78 99 01/19/20 13:04 80 99 01/19/20 12:59 74 99 01/19/20 12:49 80 100 01/19/20 12:44 90 131/66 99 01/19/20 12:39 98.1 F 92 H 100 01/19/20 12:34 86 100 01/19/20 12:29 83 99 01/19/20 12:24 87 99 01/19/20 12:19 86 99 01/19/20 12:14 85 99 01/19/20 12:12 82 122/67 01/19/20 12:09 83 100 01/19/20 12:04 86 100 01/19/20 11:59 81 100 01/19/20 11:54 79 99 01/19/20 11:49 85 99 01/19/20 11:44 96 H 99 01/19/20 11:43 93 H 119/65 01/19/20 11:39 85 99 01/19/20 11:34 81 99 01/19/20 11:29 81 99 01/19/20 11:24 85 99 01/19/20 11:19 83 98 01/19/20 11:14 82 99 01/19/20 11:13 81 115/57 01/19/20 11:09 88 99 01/19/20 11:04 104 H 100 01/19/20 10:59 86 100 01/19/20 10:54 78 99 01/19/20 10:49 80 99 01/19/20 10:44 77 99 01/19/20 10:43 72 115/55 01/19/20 10:39 73 100 01/19/20 10:34 72 99 01/19/20 10:29 73 99 01/19/20 10:24 72 99 01/19/20 10:19 74 99 01/19/20 10:14 86 99 01/19/20 10:13 76 133/79 01/19/20 10:09 83 99 01/19/20 10:04 84 99 01/19/20 09:59 96 H 99 01/19/20 09:54 104 H 99 01/19/20 09:49 86 99 01/19/20 09:44 84 100 01/19/20 09:42 82 133/68 01/19/20 09:39 88 98 01/19/20 09:34 98 H 98 01/19/20 09:29 92 H 98 01/19/20 09:24 82 100 01/19/20 09:21 85 Intake and Output 01/19/20 01/20/20 01/20/20 22:59 06:59 14:59 Intake Total 240 Output Total 600 Balance -360 Intake: Oral 240 Output: Urine 600 Void 600 Other: Total, Intake Amount 240 Total, Output Amount 600 # Voids Void 1 Estimated Blood Loss 200 - Exam Breasts: Present: normal Abdomen: Present: normal appearance, soft, normal bowel sounds Vulva: both: normal Uterus: Present: normal, firm, fundal height below umbilicus Extremities: Present: normal - Labs Labs: Abnormal lab results 01/20/20 Range/Units 05:33 Hgb 8.8 L (10.1-14.3) gm/dl Hct 26.2 L (30.3-42.9) %
--- NOTE | 2020-01-20 09:32 | Discharge Summary ---
Providers - Providers Date of Admission: 01/19/20 16:25 Date of discharge: 01/21/20 Attending physician: ANTONIO GANDHI JR, MD Primary care physician: ANTONIO GANDHI JR, MD Hospitalization Reason for admission: active labor, IUP at term Delivery: Episiotomy: none Laceration: none Other procedures: none complications: none Discharge diagnosis: IUP at term delivered [place] baby: male Hospital course: Pt was admitted in active labor. She had a and an uneventful pp course. See H&P, delivery summary, and pp notes. Condition at discharge: Stable Disposition: DC-30 STILL A PATIENT - Discharge Diagnoses (1) Anemia Status: Acute Plan - Discharge Medications Prescriptions: Ibuprofen [Motrin 600 MG tab] 600 mg PO Q6H #30 tablet - Provider Discharge Summary Activity: routine, no sex for 6 weeks, no heavy lifting 4 weeks, no strenuous exercise Diet: routine Instructions: routine Additional instructions: [] Smoking cessation referral if applicable(refer to patient education folder for contact #) [] Refer to [facility] Booklet Call your doctor immediately for: * Fever > 100.5 * Heavy vaginal bleeding ( >1 pad per hour) * Severe persistent headache * Shortness of breath * Reddened, hot, painful area to leg or breast * Drainage or odor from incision. * Keep incision clean and dry at all times and follow doctor's instructions regarding bathing/showering Continue pnv and fe. - Follow up plan Follow up: ANTONIO GANDHI JR, MD [Primary Care Provider] - 6 [address] Forms: [facility] Discharge Summary
[2020-01-20] MEDS ORDERED: PRENATAL VIT27-FE FUMARATE-FOLIC ACID VIT TAB PO SCH (10:00)
[2020-01-20] MEDS ORDERED: FERROUS SULFATE 325 MG TAB PO SCH (14:00)
[2020-01-20 17:52] VITALS: BP 128/84
== END 2020-01-20 19:49 | disposition home or self-care (01) | DRG 774 ==
LOC: APU 16:24 → TRG 16:24 → LD 20:26 → OBSVTOIN 01-19 16:25 → OB 01-19 18:39
PROVIDERS: ADMIT Obstetrics & Gynecology; ATTEND Obstetrics & Gynecology
PROC: 10E0XZZ Delivery of Products of Conception, External Approach (ICD-10-PCS; principal; 2020-01-19)
PROC: 10907ZC Drainage of Amniotic Fluid, Therapeutic from Products of Conception, Via Natural or Artificial Opening (ICD-10-PCS; 2020-01-19)
PROC: 3E0R3BZ Introduction of Anesthetic Agent into Spinal Canal, Percutaneous Approach (ICD-10-PCS; 2020-01-19)
PROC: 00HU33Z Insertion of Infusion Device into Spinal Canal, Percutaneous Approach (ICD-10-PCS; 2020-01-19)
PROC: 3E033VJ Introduction of Other Hormone into Peripheral Vein, Percutaneous Approach (ICD-10-PCS; 2020-01-19)
DX: O99.02 Anemia complicating childbirth (principal); O98.52 Other viral diseases complicating childbirth; O99.214 Obesity complicating childbirth; E66.9 Obesity, unspecified; O99.284 Endocrine, nutritional and metabolic diseases complicating childbirth; E55.9 Vitamin D deficiency, unspecified; D64.9 Anemia, unspecified; Z37.0 Single live birth; Z3A.37 37 weeks gestation of pregnancy; O16.4 Unspecified maternal hypertension, complicating childbirth; Z20.828 Contact with and (suspected) exposure to other viral communicable diseases; B00.9 Herpesviral infection, unspecified
CPT/HCPCS: 36415; 85014; 85018; 85027; 86592; 86850; 86900; 86901; G0378; J2590; J3490; J7120; U0003-CS

== ENCOUNTER 2020-10-27 07:17 | Day surgery (SDC) | payer MEDICAID ==
--- NOTE | 2020-10-18 16:41 | History and Physical Report ---
History of Present Illness Date of examination: 10/18/20 Chief complaint: permanent sterilization History of present illness: 25 yo presenting for encounter for permanent sterilization. Reports that she has completed childbearing. Discussed regret rates <35 yo and patient still wishes to proceed. Declines reversible contraception options. Past History Past Medical History: no pertinent history Past Surgical History: D&C (x2) Family/Genetic History: none Social history: no significant social history - Obstetrical History : 7 Para: 5 Hx # Term Pregnancies: 3 Number of Pregnancies: 2 Spontaneous Abortions: 2 Number of Living Children: 5 Medications and Allergies Allergies Allergy/AdvReac Type Severity Reaction Status Date / Time No Known Allergies Allergy Verified 03/02/16 17:09 Home Medications Medication Instructions Recorded Confirmed Last Taken Type Ferrous Sulfate 325 mg PO DAILY #90 01/20/20 01/18/20 01/16/20 Rx Ibuprofen [Motrin 600 MG tab] 600 mg PO Q6H #30 tablet 01/20/20 Unknown Rx Vit-Fe Fumar-FA [ 1 tab PO QDAY #90 01/20/20 01/18/20 01/18/20 Rx Vitamin] Review of Systems All systems: negative (expect HPI) - Physical Exam Abdomen: Positive: normal appearance, normal bowel sounds Results All other labs normal. Assessment and Plan - Patient Problems (1) Sterilization Status: Acute Plan to address problem: To OR for laparoscopic tubal ligation with Filshie Clips --Consented on the chart --Questions solicited and answered --Anticipate discharge home after procedure
[~2020-10-27 07:17] MED LIST: ACETAMINOPHEN 500 MG TAB PO SCH; CELECOXIB 200 MG CAP PO NR; GABAPENTIN 300 MG CAP PO NR; LACTATED RINGERS 1,000 ML IV SCH; MIDAZOLAM 2 MG/2 ML INJ IV NR; SCOPOLAMINE TRANSDERMAL PATCH 72 HR TD NR
[2020-10-27] MEDS ORDERED: BUPIVACAINE/PF (0.5%) 5 MG/1 ML 30 ML VIAL INFILTRATI ONE ×3 (07:38→11:04)
[2020-10-27] MEDS ORDERED: ONDANSETRON 4 MG/2 ML INJ IV PRN (08:41)
[2020-10-27] MEDS ORDERED: oxyCODONE /ACETAMINOPHEN 5-325MG TAB PO PRN ×2 (08:41→12:00)
--- NOTE | 2020-10-27 08:41 | Anesthesia Consultation ---
Anesthesia Consult and Med Hx Date of service: 10/27/20 - Airway Anesthetic Teeth Evaluation: Good, Partials (upper) ROM Head & Neck: Adequate Mental/Hyoid Distance: Adequate Mallampati Class: Class I Intubation Access Assessment: Good - Pre-Operative Health Status ASA Pre-Surgery Classification: ASA1 Proposed Anesthetic Plan: General - Pulmonary Hx Smoking: No Hx Respiratory Symptoms: No Hx Sleep Apnea: No (ANGE PRE SCREEN NEGATIVE) - Cardiovascular System Hx Hypertension: No - Central Nervous System CVA: No - Endocrine Hx Renal Disease: No Hx Liver Disease: No Hx Insulin Dependent Diabetes: No Hx Non-Insulin Dependent Diabetes: No Hx Thyroid Disease: No - Hematic Hx Anemia: Yes - Other Systems Hx Obesity: No - Additional Comments Anesthesia Medical History Comments: No hx anesthetic complications.
--- NOTE | 2020-10-27 08:41 | Anesthesia Day of Surgery ---
Anesthesia Day of Surgery - Day of Surgery Patient Examined: Yes Patient H&P Reviewed: Yes Patient is NPO: Yes
[2020-10-27] MEDS ORDERED: HYDROmorphone 1 MG/1 ML INJ ONE (09:07)
[2020-10-27] MEDS ORDERED: propofoL 200 MG/20 ML VIAL IV ONE (09:07)
[2020-10-27] MEDS ORDERED: LIDOCAINE MPF (2%) 20 MG/1 ML VIAL 5 ML ONE (09:09)
[2020-10-27] MEDS ORDERED: ROCURONIUM 50 MG/5 ML INJ IV ONE (09:10)
[2020-10-27 09:35] LABS: Basophils # (Auto) 0.1 K/mm3 (0.0-0.1); Basophils % (Auto) 1.5 % (0.0-1.8); Eosinophils # (Auto) 0.2 K/mm3 (0.0-0.4); Eosinophils % (Auto) 3.4 % (0.0-4.3); Hematocrit 36.8 % (30.3-42.9); Hemoglobin 12.5 gm/dl (10.1-14.3); Lymphocytes # (Auto) 1.6 K/mm3 (1.2-5.4); Lymphocytes % (Auto) 33.8 % (13.4-35.0); Mean Corpuscular HGB Conc 34 % (30-34); Mean Corpuscular Volume 87 fl (79-97); Monocytes # (Auto) 0.3 K/mm3 (0.0-0.8); Monocytes % (Auto) 5.6 % (0.0-7.3); Platelet Count 193 K/mm3 (140-440); Red Blood Count 4.23 M/mm3 (3.65-5.03); Red Cell Distribution Width 14.9 % (13.2-15.2)
[2020-10-27] MEDS ORDERED: SODIUM CHLORIDE 0.9% IRR 1,500 ML BOTTLE IR ONE (11:03)
[2020-10-27] MEDS ORDERED: ONDANSETRON 4 MG/2 ML INJ ONE (11:09)
[2020-10-27] MEDS ORDERED: GLYCOPYRROLATE 0.4 MG/2 ML INJ ONE (11:09)
[2020-10-27] MEDS ORDERED: KETOROLAC 30 MG/1 ML INJ ONE (11:09)
[2020-10-27] MEDS ORDERED: NEOSTIGMINE 10MG/10 ML INJ MDV ONE (11:09)
--- NOTE | 2020-10-27 11:24 | Procedure Note ---
Date of procedure: 10/27/20 Pre-op diagnosis: desiring permanent sterilization Post-op diagnosis: same Procedure: Preoperative diagnosis: Multiparous woman desiring permanent sterilization Postoperative diagnosis: Same Operation performed: 1. Exam under anesthesia 2. Laparoscopic bilateral tubal ligation with Filshie clips Surgeon: Antonio Gandhi Anesthesia: General endotracheal anesthesia Estimated blood loss 20 cc IVF 800cc UOP 100cc Pathology Specimens: none Complications none Disposition and condition: To the PACU in stable condition and then discharged home Findings: 1. Small, mobile, anteverted uterus without adnexal masses on EUA 2. Normal uterus and bilateral tubes and ovaries on laparoscopy 3. Normal-appearing liver, gallbladder next Statement of medical necessity 25 yo who desires permanent sterilization. The patient was extensively counseled and offered reversal methods of contraception but declined. She was informed about the procedure failure rates and regret rates under the age of 30 years. The procedure risk, benefits, indications and alternatives were thoroughly reviewed with patient. Description of operation: After obtaining informed consent, the patient was taken to the operating room where satisfactory general endotracheal anesthesia was established. The patient was placed in modified supine position using Jaylan stirrups ensuring proper positioning and cushioning to avoid nerve injury. An exam under anesthesia was performed with the findings noted above. She was prepped and draped in the usual sterile fashion. Straight catheterization of the bladder was performed. A [employer] manipulator was placed in order to aid in uterine manipulation. Attention was directed to the abdomen. A 5 mm incision was placed supraumbilically. With the patient horizontal, the camera and 5 mm trocar were introduced into the abdominal cavity while tenting up the abdominal wall with towel clips in order to gain entry into the abdominal cavity. Intraperitoneal placement was confirmed with initial pressure of 20 mmHg on insufflation. Pneumoperitoneum was obtained in the placed and the patient was placed in Trendelenburg position. A midline suprapubic incision was made with a scalpel and a 8 mm trocar was placed under direct visualization. The blunt grasper was used in order to inspect the pelvis with the findings noted above. The fallopian tubes were identified and followed out to the fimbriated ends. The entire mid isthmic girth of the left tube was grasped perpendicularly without difficulty with applicator. The clip was applied and good applied with tubal blanching was noted. There was no bleeding in the mesosalpinx. The same procedure was performed on contralateral side. This procedure was completed x2 with a result of 2 Filshie clips on each tube. All instruments were removed. Suprapubic trocar was removed under direct verbalization with port site hemostasis noted. The pneumoperitoneum was reduced and the umbilical trocar was removed under direct visitation while with withdrawing the laparoscope. The patient was returned to horizontal dorsal supine position. The skin incisions were closed with 2-0 Vicryl in a subcuticular fashion and dressed with Dermabond. The Vcare manipulator was removed from vagina. The patient tolerated the procedure well was extubated without difficulty and transferred recovery room in good condition. Sponge, needle instrument counts were correct x2. There is no surgical or anesthetic complications. Anesthesia: GETA Surgeon: ANTONIO GANDHI JR Estimated blood loss: other (20cc) IV fluids: 800 Urine output: 100 Pathology: none Condition: stable Disposition: same day
[2020-10-27] MEDS: HYDROmorphone 1 MG/1 ML INJ IV PRN ×4 (11:39→12:08)
[2020-10-27] MEDS ORDERED: IBUPROFEN 600 MG TAB PO PRN (12:00)
[2020-10-27] MEDS ORDERED: hydrALAZINE 20 MG/1 ML INJ ONE (12:05)
[2020-10-27] MEDS ORDERED: hydrALAZINE 20 MG/1 ML INJ IV PRN (12:05)
[2020-10-27 12:32] VITALS: BP 153/84
[2020-10-27] MEDS ORDERED: ONDANSETRON 4 MG ODT TAB PO PRN (13:00)
--- NOTE | 2020-10-27 13:17 | Post Anesthesia Evaluation ---
- Post Anesthesia Evaluation Patient Participated: Yes Airway Patent: Yes Stable Respiratory Function: Yes Nausea/Vomiting: No Temp > 96.8F: Yes Pain Manageable: Yes Adequeate Hydration: Yes Anesthesia Complications: No
== END 2020-10-27 13:15 | disposition home or self-care (01) ==
LOC: OR 07:17
PROVIDERS: ATTEND Obstetrics & Gynecology
DX: Z30.2 Encounter for sterilization (principal); D64.9 Anemia, unspecified; Z83.3 Family history of diabetes mellitus; Z79.899 Other long term (current) drug therapy; Z82.49 Family history of ischemic heart disease and other diseases of the circulatory system
CPT/HCPCS: 36415; 58671; 81025; 85025; J0360; J1170; J1885; J2250; J2405; J2704; J2710; J7120

== ENCOUNTER 2020-10-29 13:33 | Emergency (ER) | payer MEDICAID ==
[2020-10-29 15:10] VITALS: BP 156/77
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
[2020-10-29 15:42] LABS: Basophils % (Auto) 0.7 % (0.0-1.8); Eosinophils # (Auto) 0.2 K/mm3 (0.0-0.4); Eosinophils % (Auto) 3.8 % (0.0-4.3); Hematocrit 36.2 % (30.3-42.9); Hemoglobin 12.3 gm/dl (10.1-14.3); Lymphocytes # (Auto) 2.5 K/mm3 (1.2-5.4); Lymphocytes % (Auto) 53.5 % (13.4-35.0); Mean Corpuscular HGB Conc 34 % (30-34); Mean Corpuscular Volume 89 fl (79-97); Monocytes # (Auto) 0.3 K/mm3 (0.0-0.8); Monocytes % (Auto) 6.1 % (0.0-7.3); Platelet Count 168 K/mm3 (140-440); Red Blood Count 4.08 M/mm3 (3.65-5.03); Red Cell Distribution Width 14.8 % (13.2-15.2)
[2020-10-29 16:07] LABS: Alanine Aminotransferase 9 units/L (7-56); Blood Urea Nitrogen 7 mg/dL (7-17); Calcium 9.2 mg/dL (8.4-10.2); Hemolysis Index 61
[2020-10-29 16:08] LABS: BUN/Creatinine Ratio 10
[2020-10-29 17:56] LABS: Bilirubin,Urine NEG (Negative); Blood,Urine SM (Negative); Color,Urine Yellow (Yellow); Mucus,Urine FEW /HPF; Protein,Urine <15 mg/dL mg/dL (Negative); Urobilinogen,Urine < 2.0 mg/dL (<2.0)
[2020-10-29] MEDS ORDERED: ONDANSETRON 4 MG/2 ML INJ IV ONE (20:49)
[2020-10-29] MEDS ORDERED: MORPHINE 4 MG/1 ML INJ IV ONE (20:49)
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
== END 2020-10-30 00:53 | disposition home or self-care (01) ==
LOC: ED 13:33
DX: G89.18 Other acute postprocedural pain (principal); R10.31 Right lower quadrant pain; R10.32 Left lower quadrant pain; Z79.899 Other long term (current) drug therapy; Z98.890 Other specified postprocedural states; Z98.51 Tubal ligation status
CPT/HCPCS: 36415; 74177; 80053; 81001; 83690; 85025; 96374; 96375; 99284; J2270; J2405; Q9967